=== PATIENT | male | born 1975 | race African-American/Black ===

== ENCOUNTER 2025-06-21 20:55 | Inpatient (IN) | payer MEDICAID, OTHER ==
[~2025-06-21] VITALS: Ht 180.3 cm; Wt 100.0 kg
--- NOTE | 2025-06-21 22:29 | ED.PDOC ---
History of Present Illness(SKN HPI Comments 49-year-old noncompliant type 2 diabetic male presents to the ED chief complaint right foot ulcer. Patient states blister started a approximally one month ago. States started off has a callus follow up with his PCP at and january and had it scraped. Patient also states had a callus on his left foot that was scraped and also was admitted for several days for IV antibiotics. Patient reports he is type 2 diabetic was starting on metformin however has been taking his medication as prescribed. He does note some pain 6/10 on pain scale pressure type pain worse with ambulating he does deny fevers chills nausea vomiting chest pain, difficulty breathing or shortness of breath. Chief Complaint: Lower Extremity Time Seen by MD: 21:02 History of Present Illness: Nurses Notes, Medications, Allergies Allergies: Coded Allergies: No Known Drug Allergy (Verified Allergy, Unknown, 06/21/25) Information Source: Patient Mode of Arrival: Ambulatory Past Medical History PAST MEDICAL HISTORY: DM Surgical History: Denies all surgeries Family History Family History: Unknown Social History Smoker: Other (vape) Alcohol: Heavy Drugs: Denies Drug Use All Other Systems: Reviewed and Negative (see hpi) Physical Exam General Appearance: No Apparent Distress, Normal HEENT: Pharynx Normal Neck: Full Range of Motion, Non-Tender Respiratory: Lungs Clear, No Respiratory Distress, Normal Breath Sounds Cardiovascular: No Murmur, Normal Peripheral Pulses, Regular Rate/Rhythm Breast Exam: Deferred Gastrointestinal: Non Tender, Soft Genitalia: Deferred Pelvic: Deferred Rectal: Deferred Extremities: No calf tenderness, Normal capillary refill, Normal range of motion, No pedal edema Musculoskeletal : Apperance: Normal Neurologic: Alert, No Motor Deficits, Normal Affect, Normal Mood, No Sensory Deficits Cerebellar Function: Normal Reflexes: NOT DONE Skin: Dry, Normal Color, Warm, Wounds (Approximate half dollar size ulcerated wound right distal plantar aspect no noted drainage noted surrounding erythema plus one pitting edema of the foot up into ankle with noted erythema. Strength sensory motion intact positive pedal pulse) Lymphatic: No Adenopathy Was a procedure done? Was a procedure done?: No Differential Diagnosis (INTG) Differential Diagnosis: Cellulitis, Puncture Wound Differential Diagnosis: Abscess, Gangrene X-Ray, Labs, Meds, VS Vital Signs Date Time Temp Pulse Resp B/P (MAP) Pulse Ox O2 Delivery O2 Flow Rate FiO2 10/2/25 21:50 95 18 96 Room Air 06/21/25 21:50 97.7 95 18 133/75 (94) 96 97.7 06/21/25 20:58 97.7 95 18 133/75 96 97.7 Lab Test 06/21/25 22:17 06/21/25 22:01 Range/Units White Blood Count 4.5 4.4-10.8 10^3/uL Red Blood Count 4.32 L 4.5-5.90 10^6/uL Hemoglobin 13.3 L 13.5-17.5 g/dL Hematocrit 38.7 L 41.0-53.0 % Mean Corpuscular Volume 89.7 80.0-100.0 fL Mean Corpuscular Hemoglobin 30.9 28.0-32.0 pg Mean Corpuscular Hemoglobin Concent 34.4 32.0-36.0 g/dL Red Cell Distribution Width 12.2 11.8-14.3 % Platelet Count 275 140-450 10^3/uL Mean Platelet Volume 8.1 6.9-10.8 fL Neutrophils (%) (Auto) 57.8 37.0-80.0 % Lymphocytes (%) (Auto) 33.2 10.0-50.0 % Monocytes (%) (Auto) 6.7 0.0-12.0 % Eosinophils (%) (Auto) 1.6 0.0-7.0 % Basophils (%) (Auto) 0.7 0.0-2.0 % Neutrophils # (Auto) 2.6 1.6-8.6 10 ^3/uL Lymphocytes # (Auto) 1.5 0.4-5.4 10 ^3/uL Monocytes # (Auto) 0.3 0-1.3 10 ^3/uL Eosinophils # (Auto) 0.1 0-0.8 10 ^3/uL Basophils # (Auto) 0 0-0.2 10 ^3/uL Nucleated Red Blood Cells 0.1 % Prothrombin Time Pending Prothrombin Time INR Pending Activated Partial Thromboplast Time Pending Sodium Level 139 136-145 mmol/L Potassium Level 3.9 3.5-5.1 mmol/L Chloride Level 101 98-107 mmol/L Carbon Dioxide Level 29 20-31 mmol/L Anion Gap 9 5-15 Blood Urea Nitrogen 12 9-23 mg/dL Creatinine 1.02 0.700-1.30 mg/dL Glomerular Filtration Rate Calc 91 >90 mL/min BUN/Creatinine Ratio 11.8 10.0-20.0 Serum Glucose 302 H 74-106 mg/dL Hemoglobin A1c Pending Lactic Acid Level 0.9 0.4-2.0 mmol/L Calcium Level 9.1 8.7-10.4 mg/dL Phosphorus Level 3.4 2.4-5.1 mg/dL Magnesium Level 1.6 1.6-2.6 mg/dL Total Bilirubin 0.6 0.2-1.0 mg/dL Aspartate Amino Transferase (AST) 11 L 13-40 U/L Alanine Aminotransferase (ALT) < 9 7-40 U/L Alkaline Phosphatase 77 46-116 U/L C-Reactive Protein High Sensitivity 0.70 <1.0 mg/dL Total Protein 7.2 5.7-8.2 g/dL Albumin 4.3 3.2-4.8 g/dL Triglycerides Level 79 < 150 mg/dL Cholesterol Level 173 < 200 mg/dL LDL Cholesterol 95 < 100 mg/dL HDL Cholesterol 63 H 40-59 mg/dL Lipase Pending Vitamin B12 Level 518 211-911 pg/mL Vitamin D 25-Hydroxy Pending Thyroid Stimulating Hormone (TSH) Pending POC Glucose 283 H 70-106 mg/dl Current Medications Medications (Trade) Dose Ordered Sig/Eric Route Start Time Stop Time Status Last Admin Vancomycin HCl 250 ml @ 250 mls/hr ONCE ONCE IV 06/21/25 22:15 06/21/25 23:14 DC 06/21/25 23:08 Acetaminophen/ Hydrocodone Bitart ([place] 5/325MG Tab) 1 tab ONCE ONCE PO 06/21/25 22:15 06/21/25 22:16 DC 06/21/25 23:06 Sodium Chloride 1,000 ml @ 1,000 mls/hr Q1H ONCE IV 06/21/25 22:15 06/21/25 23:14 DC 06/21/25 23:08 Insulin Human Regular (InsuLIN R) 7 units ONCE ONCE IV 06/21/25 22:15 06/21/25 22:16 DC 06/21/25 23:07 X-Ray, Labs, Meds, VS Comment IMAGING: CT RIGHT FOOT No acute fracture or dislocation is seen. There are degenerative changes about the foot. There is diffuse subcutaneous swelling and stranding /fluid. No soft tissue gas is seen. No osseous erosion is seen. IMPRESSION: 1. Diffuse subcutaneous swelling and stranding/fluid may reflect infectious/in flammatory process in the appropriate clinical setting. If there is clinical concern for osteomyelitis, MRI would be more sensitive in further assessment. LAB WORK: CBC within normal limits no white count CMP blood glucose 302 Lactic acid 0.9 neg Pending blood cultures MEDICATIONS: Insulin 7 units IV push Normal saline 1000 mL bolus Vancomycin 1 g IV piggyback [place] 5 mg p.o. PLAN: Admission placed for IV antibiotics infected diabetic ulcerand uncontrolled diabetes. CT shows no gas pattern consider MRI in the morning to rule out osteomyelitis. Patient is started on IV vanco and IV insulin and fluids will place patient for admit for hospitalist. Time of 1ST Reevaluation: 21:02 Reevaluation 1ST: Unchanged Time of 2ND Reevaluation: 23:05 Reevaluation 2ND: Unchanged Patient Education/Counseling: Diagnosis, Treatment, Prognosis, Need For Follow Up Family Education/Counseling: No Family Present SEPSIS Sepsis Screen Date sepsis recognized/suspect: Jun 21, 2025 Time Sepsis recognized/suspect: 2155 Recent Procedure: No On Antibiotic Therapy: No Respiratory Rate >20: No Heart Rate >90: Yes Temp<36 C (96.8 F) or >38.3 C: No SBP <90 or MAP <65 mmHG: No New Acute Mental Status Change: No Is the patient on CPAP, BIPAP,: No Physician Orders Ct R Foot Wo Contrast (06/21/25 22:03) Blood Culture (06/21/25 22:03) Heplock Iv (06/21/25 ) Vital Signs Date Time Temp Pulse Resp B/P (MAP) Pulse Ox O2 Delivery O2 Flow Rate FiO2 06/21/25 21:50 95 18 96 Room Air 06/21/25 21:50 97.7 95 18 133/75 (94) 96 97.7 06/21/25 20:58 97.7 95 18 133/75 96 97.7 Laboratory Tests Test 06/21/25 22:17 Lactic Acid Level 0.9 mmol/L (0.4-2.0) White Blood Count 4.5 10^3/uL (4.4-10.8) Medications Medications Dose Ordered Sig/Eric Route Start Time Stop Time Status Last Admin Dose Admin Acetaminophen/ Hydrocodone Bitart 1 tab ONCE ONCE PO 06/21/25 22:15 06/21/25 22:16 DC 06/21/25 23:06 Insulin Human Regular 7 units ONCE ONCE IV 06/21/25 22:15 06/21/25 22:16 DC 06/21/25 23:07 Sodium Chloride 1,000 ml @ 1,000 mls/hr Q1H ONCE IV 06/21/25 22:15 06/21/25 23:14 DC 06/21/25 23:08 Vancomycin HCl 250 ml @ 250 mls/hr ONCE ONCE IV 06/21/25 22:15 06/21/25 23:14 DC 06/21/25 23:08 Departure 1 Departure Time of Disposition: 22:25 Impression: Primary Impression: Diabetic foot ulcer Qualified Codes: E11.621 - Type 2 diabetes mellitus with foot ulcer; L97.412 - Non-pressure chronic ulcer of right heel and midfoot with fat layer exposed Additional Impression: Uncontrolled type 2 diabetes mellitus Qualified Codes: E11.65 - Type 2 diabetes mellitus with hyperglycemia Disposition: ADMITTED INPATIENT Condition: Stable Discharged With: Self Critical Care Note Critical Care Time?: No Stability Stability form required: TOMASZ Simmons Jun 21, 2025 22:29
[2025-06-21 22:37] LABS: Hematocrit 38.7 % (41.0-53.0); Hemoglobin 13.3 g/dL (13.5-17.5); Mean Corpuscular Hemoglobin 30.9 pg (28.0-32.0); Mean Corpuscular Volume 89.7 fL (80.0-100.0); Nucleated Red Blood Cells % 0.1 %
[2025-06-21 22:50] LABS: Albumin 4.3 g/dL (3.2-4.8); Alkaline Phosphatase 77 U/L (46-116); Anion Gap 9 (5-15); BUN/Creatinine Ratio 11.8 (10.0-20.0); Bilirubin, Total 0.6 mg/dL (0.2-1.0); Blood Urea Nitrogen 12 mg/dL (9-23); Calcium 9.1 mg/dL (8.7-10.4); Carbon Dioxide 29 mmol/L (20-31); Chloride 101 mmol/L (98-107); Potassium 3.9 mmol/L (3.5-5.1); Sodium 139 mmol/L (136-145); Total Protein 7.2 g/dL (5.7-8.2)
[2025-06-21 22:51] LABS: Alanine Aminotransferase < 9 U/L (7-40); Glucose 302 mg/dL (74-106)
[2025-06-21] MEDS: HYDROcodone-ACET 5/325MG TAB PO ONE (23:06)
[2025-06-21] MEDS: InsuLIN REG 1unit/0.01ml Soln (100units/ml) IV ONE (23:07)
[2025-06-21] MEDS: SODIUM CHLORIDE 0.9% 1,000 ML IV ONE (23:08)
[2025-06-21] MEDS: VANCOMYCIN 1GM/250ML KIT 250 ML IV ONE (23:08)
--- NOTE | 2025-06-21 23:19 | DVH ---
EXAM: CT CT R FOOT WO CONTRAST HISTORY: swelling, infection pain COMPARISON: None TECHNIQUE: Noncontrast axial CT images of the right ankle were performed. Sagittal and coronal reform atted images were obtained. This CT exam was performed using one or more of the following dose reduct ion techniques: Automated exposure control, adjustment of the mA and/or kV according to patient size, or use of iterative reconstruction technique. Radiation Dose Information: CT Dose: CTDI volume is 7. 75 mGy. Dose-length product is 260.96 mGy*cm FINDINGS: No acute fracture or dislocation is seen. There are degenerative changes about the foot. There is dif fuse subcutaneous swelling and stranding /fluid. No soft tissue gas is seen. No osseous erosion is se en. IMPRESSION: 1. Diffuse subcutaneous swelling and stranding/fluid may reflect infectious/inflammatory process in t he appropriate clinical setting. If there is clinical concern for osteomyelitis, MRI would be more s ensitive in further assessment.
--- NOTE | 2025-06-21 23:41 | DVHHPRES ---
History of Present Illness Resident Creating Document: BETHANY ENGLE RESIDENT History of Present Illness This is a 49-year-old male with past medical history of diabetes mellitus type 2, presented to the ER with worsening of right foot swelling and foot ulcer. He noticed ulcer on the right foot plantar surface for the 1st time in January 2025, the ulcer has progressively worsened since last 1 month, which urged his visit to the ER. He denies fever, chills. Previous hospitalization: In December 2024 for ulcer on great toe of left foot PMHx: Type 2 diabetes mellitus PSHx: No significant surgical history Family history: No significant family history Social history: Uses nicotine vape, alcohol occasionally. Reports marijuana (last use January 2025), denies other recreational drug use. Home medication: Metformin- noncompliant Allergic history: No known allergies Patient was examined at bedside today. Patient has tachycardia. Patient is admitted for further evaluation and management. Review of Systems Review of Systems Constitutional: Denies weight loss, fever and chills. HEENT: Denies changes in vision and hearing. Respiratory: Denies shortness of breath and cough Cardiovascular: Denies chest discomfort or palpitations GI: Denies abdominal pain, nausea, vomiting and diarrhea. : Denies dysuria and urinary frequency. Musculoskeletal: Right foot ulcer Skin: Denies rash and pruritus. Neurological: Denies dizziness, headache, vision or hearing problems Allergies: Coded Allergies: No Known Drug Allergy (Verified Allergy, Unknown, 06/21/25) Exam Vital Signs Vital Signs Date Time Temp Pulse Resp B/P (MAP) Pulse Ox O2 Delivery O2 Flow Rate FiO2 06/21/25 21:50 95 18 96 Room Air 06/21/25 21:50 97.7 133/75 (94) 97.7 Exam General: Patient alert and oriented in person, place and time. Patient followin g commands. HEENT: Normocephalic, atraumatic, moist mucous membranes Respiratory/pulmonary: Clear lungs bilaterally, vesicular murmurs present in almost all lung espinoza, no associated crackles or wheezes. Cardiovascular: Normal heart sounds S1 and S2 with no associated murmurs Abdomen: Abdomen nondistended, there is no pain to palpation in any of the abdominal quadrants, no palpable masses. Extremities: Ulcer on right foot measuring 3 cm X 1 cm, necrotic base with peripheral erythema, no discharge seen Peripheral Pulses: 3+ Radial (R). 3+ Radial (L). 3+ Dorsalis pedis (R). 3+ Dorsalis pedis(L) Skin: No rashes or pruritus, there is no sacral edema present at this time. Neurological: Intact cranial nerves with no focal neurologic deficits Labs/Xrays Labs Test 06/21/25 22:17 06/21/25 22:01 Range/Units White Blood Count 4.5 4.4-10.8 10^3/uL Red Blood Count 4.32 L 4.5-5.90 10^6/uL Hemoglobin 13.3 L 13.5-17.5 g/dL Hematocrit 38.7 L 41.0-53.0 % Mean Corpuscular Volume 89.7 80.0-100.0 fL Mean Corpuscular Hemoglobin 30.9 28.0-32.0 pg Mean Corpuscular Hemoglobin Concent 34.4 32.0-36.0 g/dL Red Cell Distribution Width 12.2 11.8-14.3 % Platelet Count 275 140-450 10^3/uL Mean Platelet Volume 8.1 6.9-10.8 fL Neutrophils (%) (Auto) 57.8 37.0-80.0 % Lymphocytes (%) (Auto) 33.2 10.0-50.0 % Monocytes (%) (Auto) 6.7 0.0-12.0 % Eosinophils (%) (Auto) 1.6 0.0-7.0 % Basophils (%) (Auto) 0.7 0.0-2.0 % Neutrophils # (Auto) 2.6 1.6-8.6 10 ^3/uL Lymphocytes # (Auto) 1.5 0.4-5.4 10 ^3/uL Monocytes # (Auto) 0.3 0-1.3 10 ^3/uL Eosinophils # (Auto) 0.1 0-0.8 10 ^3/uL Basophils # (Auto) 0 0-0.2 10 ^3/uL Nucleated Red Blood Cells 0.1 % Sodium Level 139 136-145 mmol/L Potassium Level 3.9 3.5-5.1 mmol/L Chloride Level 101 98-107 mmol/L Carbon Dioxide Level 29 20-31 mmol/L Anion Gap 9 5-15 Blood Urea Nitrogen 12 9-23 mg/dL Creatinine 1.02 0.700-1.30 mg/dL Glomerular Filtration Rate Calc 91 >90 mL/min BUN/Creatinine Ratio 11.8 10.0-20.0 Serum Glucose 302 H 74-106 mg/dL Lactic Acid Level 0.9 0.4-2.0 mmol/L Calcium Level 9.1 8.7-10.4 mg/dL Total Bilirubin 0.6 0.2-1.0 mg/dL Aspartate Amino Transferase (AST) 11 L 13-40 U/L Alanine Aminotransferase (ALT) < 9 7-40 U/L Alkaline Phosphatase 77 46-116 U/L Total Protein 7.2 5.7-8.2 g/dL Albumin 4.3 3.2-4.8 g/dL POC Glucose 283 H 70-106 mg/dl SEPSIS Sepsis Screen Date sepsis recognized/suspect: Jun 21, 2025 Time Sepsis recognized/suspect: 2155 Recent Procedure: No On Antibiotic Therapy: No Respiratory Rate >20: No Heart Rate >90: Yes Temp<36 C (96.8 F) or >38.3 C: No SBP <90 or MAP <65 mmHG: No New Acute Mental Status Change: No Is the patient on CPAP, BIPAP,: No Physician Orders Ct R Foot Wo Contrast (06/21/25 22:03) Blood Culture (06/21/25 22:03) Heplock Iv (06/21/25 ) Vital Signs Date Time Temp Pulse Resp B/P (MAP) Pulse Ox O2 Delivery O2 Flow Rate FiO2 06/21/25 21:50 95 18 96 Room Air 06/21/25 21:50 97.7 95 18 133/75 (94) 96 97.7 06/21/25 20:58 97.7 95 18 133/75 96 97.7 Laboratory Tests Test 06/21/25 22:17 Lactic Acid Level 0.9 mmol/L (0.4-2.0) White Blood Count 4.5 10^3/uL (4.4-10.8) Medications Medications Dose Ordered Sig/Eric Route Start Time Stop Time Status Last Admin Dose Admin Acetaminophen/ Hydrocodone Bitart 1 tab ONCE ONCE PO 06/21/25 22:15 06/21/25 22:16 DC 06/21/25 23:06 1 TAB Insulin Human Regular 7 units ONCE ONCE IV 06/21/25 22:15 06/21/25 22:16 DC 06/21/25 23:07 7 UNITS Sodium Chloride 1,000 ml @ 1,000 mls/hr Q1H ONCE IV 06/21/25 22:15 06/21/25 23:14 DC 06/21/25 23:08 1,000 MLS/HR Vancomycin HCl 250 ml @ 250 mls/hr ONCE ONCE IV 06/21/25 22:15 06/21/25 23:14 DC 06/21/25 23:08 250 MLS/HR Assessment/Plan Assessment/Plan Diabetic foot ulcer Rule out PAD HIV, MRSA , wound culture ordered Podiatry consulted Wound care consulted IV vancomycin and Zosyn Ordered bilateral lower arterial US Type 2 diabetes mellitus, uncontrolled Noncompliant on medication Sliding scale insulin A1c 10.8 Monitor blood glucose Diabetes education, diet Patient refuses to use insulin (in hospital long acting and none when discharged), patient understands the risks of uncontrolled blood pressure and is open to trying metformin only to control his blood glucose Vitamin-D deficiency Supplemented DIET: NPO DVT PROPHYLAXIS: Lovenox GI PROPHYLAXIS: Protonix CODE STATUS: Goals of care discussed with patient at bedside for more than 37 minutes. Full code DISPOSITION: Med/surge Patient's status and plan discussed with the patient. Case discussed with Dr. Corral Plan discussed with: Patient, Other (Nurses) Date of Service: Jun 21, 2025 Billing Provider: DOYLE MONTOYA MD Common Visit Codes: [id number] INP/OBS CARE (HIGH) Secondary Visit Codes: [id number] CARE PLAN 30 MINUTES BETHANY ENGLE RESIDENT Jun 21, 2025 23:41 AMANDO CAMPBELL RESIDENT Jun 22, 2025 05:51
[2025-06-21] MEDS ORDERED: ONDANSETRON HCL 4 MG/2 ML VIAL IV PRN (23:45)
[2025-06-21] MEDS ORDERED: MORPHINE SULFATE INJ 2 MG/ml SYRG IV PRN (23:45)
[2025-06-21] MEDS: ENOXAPARIN SOD 40 MG/0.4 ML SYRINGE SC SCH (23:45)
[2025-06-21] MEDS ORDERED: DEXTROSE (50%) 50ML SYRG IV PRN (23:45)
[2025-06-21] MEDS ORDERED: ACETAMINOPHEN 325 MG TAB PO PRN (23:45)
[2025-06-21 23:59] LABS: Magnesium 1.6 mg/dL (1.6-2.6); Triglycerides 79.0 mg/dL (< 150)
[2025-06-22 00:01] LABS: Cholesterol 173.0 mg/dL (< 200); HDL Cholesterol 63.0 mg/dL (40-59)
[2025-06-22 00:06] LABS: INR 1.02 (0.9-1.15); Partial Thromboplastin Time 24.6 SEC (24.5-34.5); Prothrombin Time 10.8 sec (9.3-11.8)
[2025-06-22 00:11] LABS: Lipase 39.0 U/L (12-53)
[2025-06-22] MEDS ORDERED: VANCOMYCIN PER PHARMACY 0 MG IV SCH (00:15)
[2025-06-22] MEDS: PIPERACILLIN-TAZOB 3.375GM 100 ML IV SCH (00:30)
[2025-06-22] MEDS ORDERED: VANCOMYCIN 1GM/250ML KIT 250 ML IV ONE (01:00)
[2025-06-22] MEDS ORDERED: ERGOCALCIFEROL 50,000 UNIT(1.25MG) CAP PO SCH (01:15)
[2025-06-22 03:12] VITALS: TEMP 97.9
[2025-06-22 03:52] LABS: Urine Protein, UAD Negative (Negative)
[2025-06-22 04:37] LABS: Amphetamine Screen, Urine Neg (NEGATIVE); Barbiturate Scree,Urine Neg (NEGATIVE); Benzodiazephine Screen, Urine Neg (NEGATIVE); Cannabinoid Screen, Urine Neg (NEGATIVE); Cocaine Screen, Urine Neg (NEGATIVE); Opiate Scree,Urine Neg (NEGATIVE); Phencyclidine Screen, Urine Neg (NEGATIVE)
[2025-06-22] MEDS: SODIUM CHLORIDE 0.9% 1,000 ML IV ONE (04:45)
[2025-06-22] MEDS: VANCOMYCIN 1GM/250ML KIT 250 ML IV ONE (04:45)
[2025-06-22 04:54] LABS: Hematocrit 38.2 % (41.0-53.0); Hemoglobin 13.1 g/dL (13.5-17.5); Mean Corpuscular Hemoglobin 30.9 pg (28.0-32.0); Mean Corpuscular Volume 89.9 fL (80.0-100.0); Nucleated Red Blood Cells % 0.2 %
[2025-06-22 05:22] LABS: Albumin 4.0 g/dL (3.2-4.8); Alkaline Phosphatase 74 U/L (46-116); Anion Gap 9 (5-15); BUN/Creatinine Ratio 12.8 (10.0-20.0); Blood Urea Nitrogen 12 mg/dL (9-23); Calcium 8.7 mg/dL (8.7-10.4); Carbon Dioxide 31 mmol/L (20-31); Chloride 102 mmol/L (98-107); Potassium 3.7 mmol/L (3.5-5.1); Sodium 142 mmol/L (136-145); Total Protein 6.7 g/dL (5.7-8.2)
[2025-06-22 05:23] LABS: Alanine Aminotransferase < 9 U/L (7-40); Bilirubin, Total 0.6 mg/dL (0.2-1.0); Glucose 192 mg/dL (74-106)
--- NOTE | 2025-06-22 05:44 | DVH ---
CHEST RADIOGRAPH Indication: SOB Technique: Single frontal view of the chest was obtained COMPARISON: None FINDINGS: Lines and Tubes: None Lungs: Increased interstitial prominence. Elevation of the left hemidiaphragm. Pleura: No effusion.No pneumothorax. Cardiomediastinal contours: Unremarkable Bones: Unremarkable IMPRESSION: Possible mild pulmonary vascular congestion.
[2025-06-22] MEDS: ACCU-CHEK COMFORT CURVE STRIP VI SCH (06:06)
[2025-06-22] MEDS: InsuLIN REG 1unit/0.01ml Soln (100units/ml) SC SCH (06:08)
--- NOTE | 2025-06-22 08:15 | DVH ---
BILATERAL Lower Extremity Arterial Duplex Date: 06/22/2025 07:10 AM Clinical History: Rule out PAD Comparison: None Technique: Duplex Doppler evaluation including color Doppler and spectral/pulsed waveform analysis of the lower extremity arteries was performed. Finding: RIGHT: Peak systolic velocities are as follows: [employer]ER 108 cm/s Deep femoral 55 cm/s SFA proximal 90 cm/s SFA mid-portion 113 cm/s SFA distal 104 cm/s Popliteal 76 cm/s Posterior tibial 81 cm/s Anterior tibial 107 cm/s Dorsalis pedis 82 cm/s The waveforms are triphasic waveforms with monophasic waveforms in the right dorsalis pedal artery an d right anterior tibial artery.. LEFT: Peak systolic velocities are as follows: [employer] TE[employer]ER 102 cm/s Deep femoral 79 cm/s SFA proximal 77 cm/s SFA mid-portion 99 cm/s SFA distal 66 cm/s Popliteal 66 cm/s Posterior tibial 69 cm/s Anterior tibial 72 cm/s Dorsalis pedis 100 cm/s The waveforms are triphasic waveforms.. REFERENCE VALUES, [facility]) vascular Imaging Lab Criteria: Peak systolic velocity ranges (in cm/sec) are as follows: <150 cm/s - <20 % stenosis 150-200 cm/s - 20-49% stenosis 200-300 cm/s - 50-75% stenosis >300 cm/s -> 75% stenosis IMPRESSION: Monophasic waveform right dorsalis pedal artery and anterior tibial artery. 3 x 1 x 2 cm right inguinal lymph node
[2025-06-22] MEDS ORDERED: THIAMINE 100mg/ml INJ (200mg/2ml VIAL) IV ONE (09:30)
[2025-06-22] MEDS ORDERED: DEXTROSE (50%) 50ML SYRG IV PRN (09:45)
[2025-06-22] MEDS ORDERED: INSULIN LANTUS (GLARGINE) 1 /0.01ml (100units/ml) SC ONE (09:45)
[2025-06-22 10:00] VITALS: BP 134/83; PULSE 63; RESP 16; O2SAT 98
[2025-06-22] MEDS ORDERED: MULTIPLE VITAMINS W/ MINERALS TAB PO SCH (10:00)
[2025-06-22] MEDS ORDERED: PANTOPRAZOLE 40 MG/10 ML VIAL INJ IV SCH (10:00)
[2025-06-22] MEDS ORDERED: INSULIN LISPRO (HUMAN) 100 UNITS/ML ML SC SCH (11:30)
[2025-06-22] MEDS ORDERED: ACCU-CHEK COMFORT CURVE STRIP VI SCH (12:00)
[2025-06-22] MEDS ORDERED: InsuLIN REG 1unit/0.01ml Soln (100units/ml) SC SCH (12:00)
--- NOTE | 2025-06-22 12:38 | DVHDSRES ---
Discharge Summary Date of Admission Resident Creating Document: ALMA SOSA RESIDENT Jun 21, 2025 at 23:37 Date of Discharge: Jun 22, 2025 Admitting Diagnosis Right diabetic foot ulcer Labs/Diagnostic Data: Laboratory Results Test 06/22/25 06:01 06/22/25 04:25 06/22/25 03:19 06/21/25 22:17 POC Glucose 283 mg/dl (70-106) White Blood Count 4.7 10^3/uL (4.4-10.8) Red Blood Count 4.25 10^6/uL (4.5-5.90) Hemoglobin 13.1 g/dL (13.5-17.5) Hematocrit 38.2 % (41.0-53.0) Mean Corpuscular Volume 89.9 fL (80.0-100.0) Mean Corpuscular Hemoglobin 30.9 pg (28.0-32.0) Mean Corpuscular Hemoglobin Concent 34.3 g/dL (32.0-36.0) Red Cell Distribution Width 12.2 % (11.8-14.3) Platelet Count 266 10^3/uL (140-450) Mean Platelet Volume 8.1 fL (6.9-10.8) Neutrophils (%) (Auto) 56.9 % (37.0-80.0) Lymphocytes (%) (Auto) 32.6 % (10.0-50.0) Monocytes (%) (Auto) 7.9 % (0.0-12.0) Eosinophils (%) (Auto) 1.8 % (0.0-7.0) Basophils (%) (Auto) 0.8 % (0.0-2.0) Neutrophils # (Auto) 2.7 10 ^3/uL (1.6-8.6) Lymphocytes # (Auto) 1.5 10 ^3/uL (0.4-5.4) Monocytes # (Auto) 0.4 10 ^3/uL (0-1.3) Eosinophils # (Auto) 0.1 10 ^3/uL (0-0.8) Basophils # (Auto) 0 10 ^3/uL (0-0.2) Nucleated Red Blood Cells 0.2 % Sodium Level 142 mmol/L (136-145) Potassium Level 3.7 mmol/L (3.5-5.1) Chloride Level 102 mmol/L (98-107) Carbon Dioxide Level 31 mmol/L (20-31) Anion Gap 9 (5-15) Blood Urea Nitrogen 12 mg/dL (9-23) Creatinine 0.94 mg/dL (0.700-1.30) Glomerular Filtration Rate Calc 101 mL/min (>90) BUN/Creatinine Ratio 12.8 (10.0-20.0) Serum Glucose 192 mg/dL (74-106) Calcium Level 8.7 mg/dL (8.7-10.4) Total Bilirubin 0.6 mg/dL (0.2-1.0) Aspartate Amino Transferase (AST) 12 U/L (13-40) Alanine Aminotransferase (ALT) < 9 U/L (7-40) Alkaline Phosphatase 74 U/L (46-116) Total Protein 6.7 g/dL (5.7-8.2) Albumin 4.0 g/dL (3.2-4.8) Plasma/Serum Blood Alcohol < 3.0 mg/dL (<10) Treponema pallidum Antibody Non-reactive (Negative) HIV (1&2) Antibody Negative (Negative) Urine Color Light-yellow (Yellow) Urine Clarity Clear (Clear) Urine pH 5.5 (5.0-9.0) Urine Specific [place] 1.016 (1.001-1.035) Urine Protein Negative (Negative) Urine Ketones Negative (Negative) Urine Blood Negative /uL (Negative) Urine Nitrite Negative (Negative) Urine Bilirubin Negative (Negative) Urine Urobilinogen Normal mg/dL (Negative) Urine Leukocyte Esterase Negative /uL (Negative) Urine RBC 1 /hpf (0 - 3) Urine Microscopic WBC < 1 /HPF (0-3) Urine Squamous Epithelial Cells Few /hpf (<5) Urine Bacteria None seen /hpf (None Seen) Urine Mucus Few (None Seen) Urine Glucose 1+ mg/dL (Normal) Urine Opiates Screen Neg (NEGATIVE) Urine Fentanyl Screen Neg (NEGATIVE) Urine Barbiturates Screen Neg (NEGATIVE) Urine Phencyclidine Screen Neg (NEGATIVE) Urine Amphetamines Screen Neg (NEGATIVE) Urine Benzodiazepines Screen Neg (NEGATIVE) Urine Cocaine Screen Neg (NEGATIVE) Urine Cannabinoids Screen Neg (NEGATIVE) Prothrombin Time 10.8 sec (9.3-11.8) Prothrombin Time INR 1.02 (0.9-1.15) Activated Partial Thromboplast Time 24.6 SEC (24.5-34.5) Hemoglobin A1c 10.8 % A1C (<5.7) Lactic Acid Level 0.9 mmol/L (0.4-2.0) Phosphorus Level 3.4 mg/dL (2.4-5.1) Magnesium Level 1.6 mg/dL (1.6-2.6) C-Reactive Protein High Sensitivity 0.70 mg/dL (<1.0) Triglycerides Level 79 mg/dL (< 150) Cholesterol Level 173 mg/dL (< 200) LDL Cholesterol 95 mg/dL (< 100) HDL Cholesterol 63 mg/dL (40-59) Lipase 39 U/L (12-53) Vitamin B12 Level 518 pg/mL (211-911) Vitamin D 25-Hydroxy 23.9 ng/mL (30.0-100) Thyroid Stimulating Hormone (TSH) 3.80 uIU/mL (0.55-4.78) Other Laboratory Tests 06/22/25 04:25 Brief Hx & Hospital Course: 49-year-old male with past medical history of diabetes mellitus type 2, presented to the ER with worsening of right foot swelling and foot ulcer. He noticed ulcer on the right foot plantar surface for the 1st time in January 2025, the ulcer has progressively worsened since last 1 month, and in the last 2 days he noticed clear discharge well as some bleeding as well as swelling which urged his visit to the ER. patient says that the discharge was foul-smelling. He denies fever, chills. Previous hospitalization: In December 2024 for ulcer on great toe of left foot PMHx: Type 2 diabetes mellitus PSHx: No significant surgical history Family history: No significant family history Social history: Uses nicotine vape. Reports marijuana (last use January 2025), denies other recreational drug use. He has been drinking alcohol since the age of 17 and drinks 4-5 hard drinks every day- usually vodka and keyana. last alcohol intake was 5 days ago. Home medication: Metformin- noncompliant Allergic history: No known allergies Brief history of hospitalization: 49-year-old male with past medical history of type 2 diabetes mellitus never adherent to his medication came with a right plantar foot ulcer that had been leaking clear fluid, some blood and swollen in the past [address] of the right foot without contrast showed diffuse subcutaneous swelling and stranding / fluid may reflect infectious / inflammatory process in the appropriate clinical setting. Bilateral lower arterial ultrasound was also done to assess for PD and monophasic waveform right dorsalis pedis artery and anterior tibial artery; 3 x1 x 2 cm right inguinal lymph node was seen. Patient was given IV vancomycin and Zosyn and wound consult was done. Podiatry consult was also placed. We checked his A1c which was 10.8 continue to monitor his blood glucose. Insulin Lantus 6 HS, lispro 2 units t.i.d. and sliding scale insulin was placed but the patient refused to take insulin believing he would become dependent on it. Patient was educated regarding the need to decrease his blood sugars and that it would contribute towards his ulcer but patient still declined medication. Patient reported that he has been drinking alcohol since age of 17 4-6 drinks per day and last drink was 5 days ago. Patient was counseled regarding cessation. He had no withdrawal symptoms. Vitamin-D levels in the labs showed low reading and it was supplemented. While we were waiting for Podiatry to see the patient and continuing with his IV antibiotics, patient wanted to leave. We counseled the patient Extensively regarding the need of hospitalization, blood sugar management and patient communicated understanding but still wanted to leave and left. 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 Operations or Procedures EXAM: CT CT R FOOT WO CONTRAST HISTORY: swelling, infection pain IMPRESSION: 1. Diffuse subcutaneous swelling and stranding/fluid may reflect infectious/inflammatory process in the appropriate clinical setting. If there is clinical concern for osteomyelitis, MRI would be more sensitive in further assessment. CHEST RADIOGRAPH Indication: SOB IMPRESSION: Possible mild pulmonary vascular congestion. BILATERAL Lower Extremity Arterial Duplex Clinical History: Rule out PAD IMPRESSION: Monophasic waveform right dorsalis pedal artery and anterior tibial artery. 3 x 1 x 2 cm right inguinal lymph node Condition at Discharge: Undetermined Final Diagnosis/Problems List #Right Diabetic foot ulcer #ruled out PAD #Type 2 diabetes mellitus, uncontrolled #Noncompliant on medication #Vitamin-D deficiency #Obesity, BMI 30.7 #alcohol use disorder Discharge Disposition: AMA Discharge Statement: "Patient was advised to return to the ER or call 911 if any headaches, dizziness, shortness of breath, chest pain, abdominal pain, bleeding, fevers, or worsening of medical condition. Patient was counseled about treatment plan, medications, possible side effects, patientverbalized understanding. All questions were answered to the best of my ability. This discharge took greater then 30 minutes in planning, reviewing documentation, counseling the patient, and discussing with other team members." ASSESSMENT ASSESSMENT Assessment Date of Service: Jun 22, 2025 Billing Provider: FRANCA ALMAGUER MD Common Visit Codes: 61714-RSZ/OBS DISCH DAY >30min ALMA SOSA RESIDENT Jun 22, 2025 12:38 FRANCA ALMAGUER MD Jun 22, 2025 19:55
[2025-06-22] MEDS ORDERED: VANCOMYCIN 1GM/250ML KIT 250 ML IV SCH (18:00)
[2025-06-23 11:07] LABS: Chlamydia Trachomatis, NAA Negative (Negative); Neisseria gonorrhoeae, NAA Negative (Negative)
== END 2025-06-22 12:18 | disposition left against medical advice (07) | DRG 380 ==
LOC: ER 20:55 → OVERFLOW 23:37
PROVIDERS: ADMIT Student in an Organized Health Care Education/Training Program; ATTEND Student in an Organized Health Care Education/Training Program
DX: E11.621 Type 2 diabetes mellitus with foot ulcer (principal); L97.519 Non-pressure chronic ulcer of other part of right foot with unspecified severity; E55.9 Vitamin D deficiency, unspecified; Z53.29 Procedure and treatment not carried out because of patient's decision for other reasons; E66.9 Obesity, unspecified; F10.10 Alcohol abuse, uncomplicated; F17.200 Nicotine dependence, unspecified, uncomplicated; Z91.148 Patient's other noncompliance with medication regimen for other reason; Z68.30 Body mass index [BMI] 30.0-30.9, adult; Z79.899 Other long term (current) drug therapy; Y90.0 Blood alcohol level of less than 20 mg/100 ml
CPT/HCPCS: 36415; 71045; 73700; 80053; 80061; 80307; 80320; 81001; 82306; 82607; 82962; 83036; 83605; 83690; 83735; 84100; 84443; 85025; 85610; 85730; 86141; 86703; 86780; 87040; 87086; 93925; 96365; G0378; J1815; J2543

== ENCOUNTER 2025-07-29 20:09 | Emergency (ER) | payer MEDICAID | END 2025-07-29 20:10 | disposition left against medical advice (07) | LOC: ER 20:09 | DX: Z48.00 Encounter for change or removal of nonsurgical wound dressing (principal); Z53.21 Procedure and treatment not carried out due to patient leaving prior to being seen by health care provider ==

== ENCOUNTER 2025-07-30 08:12 | Inpatient (IN) | payer SELFPAY ==
[~2025-07-30] VITALS: Ht 180.3 cm; Wt 215.0 kg
--- NOTE | 2025-07-30 09:06 | ED.PDOC ---
Musculoskeletal HPI Comments 49-year-old male presents to the ER with a prior MHx of diabetes in the chief complaint of a diabetic wound to the volar aspect of the right foot. Patient does have erythematous and swelling to the dorsal aspects of the metatarsal. Denies any other symptoms at this time. Still able to bear weight Denies previous surgeries to the foot Denies redness or swelling around the foot Denies fever chills night sweats nausea vomiting Chief Complaint: Wound Check Time Seen by MD: 09:00 Reviewed Notes: Nurses Notes, Medications, Allergies Allergies: Coded Allergies: No Known Drug Allergy (Verified Allergy, Unknown, 06/21/25) Information Source: Patient Mode of Arrival: Ambulatory Location: Right Extremity Location: Foot Timing: Came on: Gradually Prehospital treatment: None Severity: Moderate Able to Move Extremity: No Bear Weight: Limited Pain: Moderate Hand Dominance: Right Mechanism: Spontaneous Circumstances: Spontaneous Onset of Symptoms: Spontaneous Symptoms: Swelling, Pain, Erythema DVT Risk Factors: NONE Associated signs and symptoms: Swelling, Foot pain Past Medical History PAST MEDICAL HISTORY: DM Surgical History: Denies all surgeries Family History Family History: Reviewed,noncontributory to illness, Unknown Social History Smoker: Unknown Alcohol: Unknown Drugs: Unknown Lives In: Home Constitutional: denies: chills, diaphoresis, fatigue, fever, malaise, sweats, weakness, others EENTM: denies: blurred vision, double vision, ear bleeding, ear discharge, ear drainage, ear pain, ear ringing, eye pain, eye redness, hearing loss, mouth pain, mouth swelling, nasal discharge, nose bleeding, nose congestion, nose pain, photophobia, tearing, throat pain, throat swelling, voice changes, others Respiratory: denies: cough, hemoptysis, orthopnea, SOB at rest, shortness of breath, SOB with excertion, stridor, wheezing, others Cardiovascular: denies: chest pain, dizzy spells, diaphoresis, Dyspnea on exertion, edema, irregular heart beat, left arm pain, lightheadedness, palpitations, PND, syncope, others Gastrointestinal: denies: abdomen distended, abdominal pain, blood streaked bowels, constipated, diarrhea, dysphagia, difficulty swallowing, hematemesis, melena, nausea, poor appetite, poor fluid intake, rectal bleeding, rectal pain, vomiting, others Genitourinary: denies: burning, dysuria, flank pain, frequency, hematuria, incontinence, penile discharge, penile sore, pain, testicle pain, testicle swelling, urgency, others Neurological: denies: dizziness, fainting, headache, left sided numbness, left sided weakness, numbness, paresthesia, pre-existing deficit, right sided numbness, right sided weakness, seizure, speech problems, tingling, tremors, weakness, others Musculoskeletal: denies: back pain, gout, joint pain, joint swelling, muscle pain, muscle stiffness, neck pain, others Integumetry: reports: wounds (Diabetic wound to the volar aspect of the right foot); denies: bruises, change in color, change in hair/nails, dryness, laceration, lesions, lumps, rash, others Allergic/Immunocompromised: denies: Difficulty Healing, Frequent Infections, Hives, Itching, others Hematologic/Lymphatic: denies: anemia, blood clots, easy bleeding, easy bruising, swollen glands, others Endocrine: denies: excessive hunger, excessive sweating, excessive thirst, excessive urination, flushing, intolerance to cold, intolerance to heat, unexplained weight gain, unexplained weight loss, others Psychiatric: denies: anxiety, bipolar disorder, depression, hopeless, panic disorder, schizophrenia, sleepless, suicidal, others All Other Systems: Reviewed and Negative Physical Exam Exam Comments 2x2x2 with a diameter and depth, erythematous to the dorsal aspect of the metatarsal of the right foot General Appearance: No Apparent Distress, Normal HEENT: Normal ENT Inspection, Pharynx Normal, TMs Normal Neck: Full Range of Motion, Non-Tender, Normal, Normal Inspection Respiratory: Chest Non-Tender, Lungs Clear, No Accessory Muscle Use, No Respiratory Distress, Normal Breath Sounds Cardiovascular: No Edema, No JVD, No Murmur, No Gallop, Normal Peripheral Pulses, Regular Rate/Rhythm Breast Exam: Deferred Gastrointestinal: No Organomegaly, Non Tender, No Pulsatile Mass, Normal Bowel Sounds, Soft Genitalia: Deferred Pelvic: Deferred Rectal: Deferred Extremities: No calf tenderness, Normal capillary refill, Normal inspection, Normal range of motion, Non-tender, No pedal edema Musculoskeletal : Apperance: Normal Neurologic: Alert, roller maker II-XII nml as Tested, No Motor Deficits, Normal Affect, Normal Mood, No Sensory Deficits Cerebellar Function: Normal Reflexes: Normal Skin: Dry, Normal Color, Warm Lymphatic: No Adenopathy Was a procedure done? Was a procedure done?: No Differential Diagnosis EXT Differential Diagnosis: Cellulitis, Compartment Syndrome, Fracture, Sprain, Arthritis, Bursitis X-Ray, Labs, Meds, VS Vital Signs Date Time Temp Pulse Resp B/P (MAP) Pulse Ox O2 Delivery O2 Flow Rate FiO2 07/30/25 08:13 97.8 98 16 136/78 100 97.8 Lab Test 07/30/25 11:08 07/30/25 09:12 Range/Units Lactic Acid Level 1.3 0.4-2.0 mmol/L White Blood Count 9.4 4.4-10.8 10^3/uL Red Blood Count 4.56 4.5-5.90 10^6/uL Hemoglobin 13.8 13.5-17.5 g/dL Hematocrit 40.6 L 41.0-53.0 % Mean Corpuscular Volume 88.8 80.0-100.0 fL Mean Corpuscular Hemoglobin 30.1 28.0-32.0 pg Mean Corpuscular Hemoglobin Concent 33.9 32.0-36.0 g/dL Red Cell Distribution Width 12.1 11.8-14.3 % Platelet Count 350 140-450 10^3/uL Mean Platelet Volume 8.1 6.9-10.8 fL Neutrophils (%) (Auto) 84.3 H 37.0-80.0 % Lymphocytes (%) (Auto) 8.5 L 10.0-50.0 % Monocytes (%) (Auto) 5.9 0.0-12.0 % Eosinophils (%) (Auto) 0.5 0.0-7.0 % Basophils (%) (Auto) 0.8 0.0-2.0 % Neutrophils # (Auto) 7.9 1.6-8.6 10 ^3/uL Lymphocytes # (Auto) 0.8 0.4-5.4 10 ^3/uL Monocytes # (Auto) 0.6 0-1.3 10 ^3/uL Eosinophils # (Auto) 0 0-0.8 10 ^3/uL Basophils # (Auto) 0.1 0-0.2 10 ^3/uL Nucleated Red Blood Cells 0.0 % Erythrocyte Sedimentation Rate 56 H 0-20 mm/hr Sodium Level 135 L 136-145 mmol/L Potassium Level 3.9 3.5-5.1 mmol/L Chloride Level 94 L 98-107 mmol/L Carbon Dioxide Level 31 20-31 mmol/L Anion Gap 10 5-15 Blood Urea Nitrogen 6 L 9-23 mg/dL Creatinine 1.22 0.700-1.30 mg/dL Glomerular Filtration Rate Calc 74 >90 mL/min BUN/Creatinine Ratio 4.9 L 10.0-20.0 Serum Glucose 311 H 74-106 mg/dL Hemoglobin A1c 9.1 H <5.7 % A1C Calcium Level 9.5 8.7-10.4 mg/dL C-Reactive Protein High Sensitivity 15.99 H <1.0 mg/dL Triglycerides Level 126 < 150 mg/dL Cholesterol Level 169 < 200 mg/dL LDL Cholesterol 70 < 100 mg/dL HDL Cholesterol 64 H 40-59 mg/dL Current Medications Medications (Trade) Dose Ordered Sig/Eric Route Start Time Stop Time Status Last Admin Ceftriaxone Sodium/Dextrose 50 ml @ 50 mls/hr ONCE ONCE IV 07/30/25 11:00 07/30/25 11:59 DC 07/30/25 20:33 PATIENT: RAI MENDEZCCT: [id number]: [id number] : 1975 LOC: ER ROOM / BED: / AGE / SEX: 49 / M ADM STATUS: REG ER SERVICE [id number] ORDERING PHYSICIAN: ROSA MARIA ALVARADO NP PROCEDURE(s): RFTCT - CT R FOOT WO CONTRAST REASON: R/o osteomyelitis ORDER NUMBER(s): [id number], ACCESSION NUMBER(s): [id number] CLINICAL INDICATION: R/o osteomyelitis TECHNIQUE: Noncontrast CT of the right foot was performed. Sagittal and coronal reformatted images are provided. COMPARISON: CT CT R FOOT WO CONTRAST on DOS: 06/21/25 CT Dose: CTDI volume is 24.92 mGy. Dose-length product is 698.93 mGy*cm FINDINGS: There is marked soft tissue swelling and gas in the plantar surface of the forefoot particularly deep to the 3rd, 4th and 5th digits. There are lucencies in the 5th metatarsal head and the 5th proximal phalanx. There is also lucency in the 4th proximal phalanx. These findings are concerning for osteomyelitis. No evidence of acute fracture or dislocation. Mild midfoot degenerative changes. There is soft tissue swelling of the ankle and forefoot. Heel spur noted. No obvious fluid collection although assessment is limited without intravenous contrast. IMPRESSION: 1. Soft tissue swelling at emphysema in the forefoot compatible with cellulitis with a gas-forming bacteria suspected. 2. Suspect osteomyelitis in the 5th metatarsal head, 5th proximal phalanx and 4th proximal phalanx. MRI of the foot without and with intravenous contrast is recommended to evaluate these findings and to assess for possible additional osteomyelitis. All CT scans at this medical facility are performed using dose modulation techniques as appropriate to a performed exam including the following: Automated exposure control was utilized; adjustment of the MA and/or KV according to patient size; and use of iterative reconstruction technique. ATED BY: ALICIA BAILEY MD DICTATED DATE/TIME: 07/30/251016 SIGNED BY: ALICIA BAILEY MD SIGNED DATE/TIME: 07/30/251016 CC: X-Ray, Labs, Meds, VS Comment 49-year-old male presents to the ER with a prior MHx of diabetes in the chief complaint of a wound check to the volar aspect of the right foot. Patient arrives alert and oriented, ABC's intact, afebrile, vital signs stable, saturating well in room air Peripheral IV insertion+ labs were ordered. CBC was ordered to exclude anemia, blood loss, or infection. BMP was ordered to exclude electrolyte abnormalities, renal failure, dehydration, hyperglycemia C-reactive proteins, erythrocyte sediment Diagnostic imaging ordered by me and results interpreted by radiology : CT of the right foot diabetic foot wound. Patient well appearing. VSS. Given History, Exam, and Workup I have low suspicion for Necrotizing Fasciitis, Abscess, or DVT as cause of symptoms. Presentation consistent with Ostomyelitis Interventions: Vancomycin 1g IV and Rocepin 2g IV Disposition: Admit for IV abx, tissue evaluation/possible debridement, and continued monitoring. Time of 1ST Reevaluation: 09:30 Reevaluation 1ST: Unchanged Time of 2ND Reevaluation: 10:47 Reevaluation 2ND: Unchanged Patient Education/Counseling: Diagnosis, Treatment, Prognosis Family Education/Counseling: No Family Present Sepsis Sepsis Reasesment Focused Exam Orders: Laboratory Tests 07/30/25 11:08: Lactic Acid Level 1.3 Departure 1 Departure Time of Disposition: 10:47 Impression: Primary Impression: Diabetic foot ulcer Qualified Codes: E13.621 - Other specified diabetes mellitus with foot ulcer; L97.519 - Non-pressure chronic ulcer of other part of right foot with unspecified severity Additional Impressions: Osteomyelitis Qualified Codes: M86.9 - Osteomyelitis, unspecified Cellulitis of foot Disposition: ADMITTED INPATIENT Condition: Guarded Critical Care Note Critical Care Time?: No Stability Stability form required: No Heart Score Heart Score: Heart Score Response (Comments) Value History N/A 0 EKG N/A 0 Age N/A 0 Risk Factors N/A 0 Troponin N/A 0 Total 0 I personally scribed for ROSA MARIA ALVARADO NP ([email or web address]) on 07/30/25 at 09:06. Electronically submitted by Roman Trevino ([email or web address]). ROSA MARIA ALVARADO NP Jul 30, 2025 09:06
[2025-07-30 09:30] LABS: Hematocrit 40.6 % (41.0-53.0); Hemoglobin 13.8 g/dL (13.5-17.5); Mean Corpuscular Hemoglobin 30.1 pg (28.0-32.0); Mean Corpuscular Volume 88.8 fL (80.0-100.0); Nucleated Red Blood Cells % 0.0 %
[2025-07-30 09:44] LABS: Potassium 3.9 mmol/L (3.5-5.1)
[2025-07-30 09:45] LABS: Calcium 9.5 mg/dL (8.7-10.4); Carbon Dioxide 31 mmol/L (20-31)
[2025-07-30 09:48] LABS: Sodium 135 mmol/L (136-145)
[2025-07-30 09:50] LABS: BUN/Creatinine Ratio 4.9 (10.0-20.0)
[2025-07-30 09:51] LABS: Blood Urea Nitrogen 6 mg/dL (9-23); Glucose 311 mg/dL (74-106)
[2025-07-30 10:19] LABS: Anion Gap 10 (5-15); Chloride 94 mmol/L (98-107)
--- NOTE | 2025-07-30 10:20 | DVH ---
CLINICAL INDICATION: R/o osteomyelitis TECHNIQUE: Noncontrast CT of the right foot was performed. Sagittal and coronal reformatted images are provided. COMPARISON: CT CT R FOOT WO CONTRAST on DOS: 06/21/25 CT Dose: CTDI volume is 24.92 mGy. Dose-length product is 698.93 mGy*cm FINDINGS: There is marked soft tissue swelling and gas in the plantar surface of the forefoot particularly deep to the 3rd, 4th and 5th digits. There are lucencies in the 5th metatarsal head and the 5th proximal phalanx. There is also lucency in the 4th proximal phalanx. These findings are concerning for osteomyelitis. No evidence of acute fracture or dislocation. Mild midfoot degenerative changes. There is soft tissue swelling of the ankle and forefoot. Heel spur noted. No obvious fluid collection although assessment is limited without intravenous contrast. IMPRESSION: 1. Soft tissue swelling at emphysema in the forefoot compatible with cellulitis with a gas-forming bacteria suspected. 2. Suspect osteomyelitis in the 5th metatarsal head, 5th proximal phalanx and 4th proximal phalanx. MRI of the foot without and with intravenous contrast is recommended to evaluate these findings and to assess for possible additional osteomyelitis. All CT scans at this medical facility are performed using dose modulation techniques as appropriate to a performed exam including the following: Automated exposure control was utilized; adjustment of the MA and/or KV according to patient size; and use of iterative reconstruction technique.
[2025-07-30] MEDS ORDERED: VANCOMYCIN PER PHARMACY 0 MG IV SCH ×2 (11:00→11:30)
[2025-07-30] MEDS ORDERED: ACETAMINOPHEN 325 MG TAB PO PRN (11:30)
[2025-07-30] MEDS ORDERED: HYDROcodone-ACET 5/325MG TAB PO PRN (11:30)
[2025-07-30] MEDS ORDERED: VANCOMYCIN 1GM/250ML KIT 250 ML IV SCH (11:30)
[2025-07-30] MEDS: SODIUM CHLORIDE 0.9% 1,000 ML IV ONE (11:30)
--- NOTE | 2025-07-30 11:50 | DVHHPRES ---
History of Present Illness Resident Creating Document: CODIE MADRIGAL History of Present Illness This is a 49-year-old male with past medical history of type 2 diabetes mellitus non compliant with his medications. Patient presented to the ED with chief complaint of right foot pain and edema. Patient reports that he has been dealing with a right foot nonhealing ulcer in the plantar aspect of the right foot for the past four months. 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 Today he presented to the ED with similar complaint. Upon my examination, there is an open wound in the plantar aspect of the right foot that is not painful to the touch and is actually not secreting any pus or material from the wound. There is mild edema in the dorsal aspect of the right foot that is very tender to palpation but no crepitus at this time. Initial labs were grossly unremarkable except for mild LINDA and elevated blood glucose at 311. CT of the right foot showed soft tissue swelling and cellulitis with a gas-forming bacteria and suspected osteomyelitis of the 5th metatarsal head and 4th proximal phalanx. Based on possible gas- forming bacteria we started the patient on IV meropenem, vancomycin and clindamycin to cover for necrotizing cellulitis/fascitis. We ordered blood cultures, wound cultures and Podiatry consult. Once cultures are back we can deescalate antibiotics accordingly. Patient will be admitted for further assessment and management of osteomyelitis of the right foot. Home medications: Metformin 500 mg b.i.d.. Patient states that he is not taking the medication due to diarrhea and GI concerns. Past surgical history: Denies Social history: Denies drug intake, reports occasional alcohol intake and occasional vaping. Endocrine: Diabetes Past Surgical History: None Family History: None Smoke: No (reports vaping) ALCOHOL: occassional Drugs: None Lives: with Family Review of Systems Constitutional: Yes: Chills; No: Fever, Sweats, Weakness, Malaise, Other Eyes: No: Pain, Vision change, Conjunctivae inflammation, Eyelid inflammation, Other, Redness ENT: No: Ear pain, Ear discharge, Nose pain, Nose discharge, Nose congestion, Mouth pain, Mouth swelling, Throat pain, Throat swelling, Other Respiratory: No: Cough, Dry, Shortness of breath, SOB with excertion, Wheezing, Hemoptysis, Pleuritic Pain, Sputum, Wheezing, Other Cardiovascular: No: Chest Pain, Palpitations, Orthopnea, Paroxysmal Noc. Dyspnea, Edema, Lt Headedness, Other Gastrointestinal: No: Nausea, Vomiting, Abdominal Pain, Diarrhea, Constipation, Melena, Hematochezia, Other Genitourinary: No Dysuria, No Frequency, No Incontinence, No Hematuria, No Retention, No Other Musculoskeletal: foot pain (Right foot pain in the dorsal aspect of the foot upon palpation and reports edema); No: other, neck pain, shoulder pain, arm pain, back pain, hand pain, leg pain Skin: No: Rash, Lesions, Jaundice, Bruising, Other Neurological: No: Weakness, Numbness, Incoordination, Change in speech, Confusion, Seizures, Other Allergies: Coded Allergies: No Known Drug Allergy (Verified Allergy, Unknown, 06/21/25) Medications Current Medications Medications Dose Ordered Sig/Eric Route Start Time Stop Time Status Last Admin Dose Admin Vancomycin HCl 0 ml @ 0 mls/hr PER PHARMACY IV 07/30/25 11:00 Vancomycin HCl 250 ml @ 250 mls/hr Q1H IV 07/30/25 11:30 07/30/25 13:29 Sodium Chloride 1,000 ml @ 60 mls/hr [id number] IV 07/30/25 13:00 UNV Acetaminophen 650 mg Q6HP PRN PO 07/30/25 11:30 UNV Acetaminophen/ Hydrocodone Bitart 1 tab Q4HP PRN PO 07/30/25 11:30 UNV Meropenem 50 ml @ 17 mls/hr Q8HR IV 07/30/25 14:00 UNV Vancomycin HCl 0 ml @ 0 mls/hr PER PHARMACY IV 07/30/25 11:30 UNV Clindamycin Phosphate 50 ml @ 50 mls/hr Q8HR IV 07/30/25 14:00 UNV Exam Vital Signs Vital Signs Date Time Temp Pulse Resp B/P (MAP) Pulse Ox O2 Delivery O2 Flow Rate FiO2 07/30/25 08:13 97.8 98 16 136/78 100 97.8 General Appearance: Alert, Oriented X3, Cooperative, mild distress HEENT: Atraumatic, PERRLA, EOMI, Mucous membr. moist/pink Respiratory: Clear to auscultation, Normal air movement Cardiovascular: Regular rate, Normal S1, Normal S2, No murmurs Abdominal: Normal bowel sounds, Soft, No tenderness, No hepatospenomegaly, No masses Extremities: No clubbing, No cyanosis, Normal pulses, Other (There is s ignificant tenderness to palpation in the dorsal aspect of the right foot with mild edema but no crepitus. There is an open wound ulcer on the plantar aspect of the right foot without active secretions at this time.) Skin: No rashes Neuro: Normal gait, Normal speech, Strength at 5/5 X4 ext, Normal tone, Sensation intact, Cranial nerves 3-12 NL, Reflexes 2+ Psych/Mental Status: Mental status NL, Mood NL Labs/Xrays Labs Test 07/30/25 11:08 07/30/25 09:12 Range/Units White Blood Count 9.4 4.4-10.8 10^3/uL Red Blood Count 4.56 4.5-5.90 10^6/uL Hemoglobin 13.8 13.5-17.5 g/dL Hematocrit 40.6 L 41.0-53.0 % Mean Corpuscular Volume 88.8 80.0-100.0 fL Mean Corpuscular Hemoglobin 30.1 28.0-32.0 pg Mean Corpuscular Hemoglobin Concent 33.9 32.0-36.0 g/dL Red Cell Distribution Width 12.1 11.8-14.3 % Platelet Count 350 140-450 10^3/uL Mean Platelet Volume 8.1 6.9-10.8 fL Neutrophils (%) (Auto) 84.3 H 37.0-80.0 % Lymphocytes (%) (Auto) 8.5 L 10.0-50.0 % Monocytes (%) (Auto) 5.9 0.0-12.0 % Eosinophils (%) (Auto) 0.5 0.0-7.0 % Basophils (%) (Auto) 0.8 0.0-2.0 % Neutrophils # (Auto) 7.9 1.6-8.6 10 ^3/uL Lymphocytes # (Auto) 0.8 0.4-5.4 10 ^3/uL Monocytes # (Auto) 0.6 0-1.3 10 ^3/uL Eosinophils # (Auto) 0 0-0.8 10 ^3/uL Basophils # (Auto) 0.1 0-0.2 10 ^3/uL Nucleated Red Blood Cells 0.0 % Erythrocyte Sedimentation Rate 56 H 0-20 mm/hr Sodium Level 135 L 136-145 mmol/L Potassium Level 3.9 3.5-5.1 mmol/L Chloride Level 94 L 98-107 mmol/L Carbon Dioxide Level 31 20-31 mmol/L Anion Gap 10 5-15 Blood Urea Nitrogen 6 L 9-23 mg/dL Creatinine 1.22 0.700-1.30 mg/dL Glomerular Filtration Rate Calc 74 >90 mL/min BUN/Creatinine Ratio 4.9 L 10.0-20.0 Serum Glucose 311 H 74-106 mg/dL Calcium Level 9.5 8.7-10.4 mg/dL C-Reactive Protein High Sensitivity 15.99 H <1.0 mg/dL SEPSIS Sepsis Screen Date sepsis recognized/suspect: Jul 30, 2025 Time Sepsis recognized/suspect: 812 Recent Procedure: No On Antibiotic Therapy: No Respiratory Rate >20: No Heart Rate >90: Yes Temp<36 C (96.8 F) or >38.3 C: No SBP <90 or MAP <65 mmHG: No New Acute Mental Status Change: No Is the patient on CPAP, BIPAP,: No Physician Orders Ct R Foot Wo Contrast (07/30/25 08:53) Blood Culture (07/30/25 10:39) Lactic Acid W/ Reflex Order (07/30/25 10:39) Heplock Iv (07/30/25 ) Vancomycin Per Pharmacy (07/30/25 11:00) Ceftriaxone 2gm/50ml (Rocephin 2gm/50ml) (07/30/25 11:00) Vancomycin 1gm/250ml Kit (07/30/25 11:30) Admit (07/30/25 11:26) Code Status (07/30/25 11:26) Vital Signs .PER UNIT PROTOCOL (07/30/25 11:26) Review Orders With Adm. (07/30/25 11:26) Encourage Activity As Tolerate (07/30/25 11:26) Consistent Carb(Ccho)Diabetes (07/30/25 Lunch) Sodium Chloride 0.9% (07/30/25 13:00) Acetaminophen Tablet (Tylenol Tablet) (07/30/25 11:30) Notify Md Of Changes From Base (07/30/25 11:26) Advance Directive (07/30/25 11:26) Basic Metabolic Panel (07/31/25 04:00) Urinalysis (07/30/25 11:) Complete Blood Count (07/31/25 04:00) Lipid Panel (07/30/25 11:) Blood Culture (07/30/25 11:26) Patient Condition (07/30/25 11:) Allergies (07/30/25 11:) Hydrocodone-Acet 5/325mg Tab (Hunker 5/32 (07/30/25 11:30) Drug Screen (07/30/25 11:26) Hemoglobin A1c (07/30/25 11:) Sodium Chloride 0.9% (07/30/25 11:30) Meropenem 1gm Ivpb (Merrem 1gm/50ml) (07/30/25 14:00) Vancomycin Per Pharmacy (07/30/25 11:30) Clindamycin 600mg Iv (Cleocin Iv) (07/30/25 14:00) Podiatry Consult (07/30/25 11:33) Wound Culture W/ Gs (07/30/25 11:34) * Wound Consult (07/30/25 ) Communication Order (07/30/25 11:35) Vital Signs Date Time Temp Pulse Resp B/P (MAP) Pulse Ox O2 Delivery O2 Flow Rate FiO2 07/30/25 08:13 97.8 98 16 136/78 100 97.8 Laboratory Tests Test 07/30/25 09:12 07/30/25 11:08 White Blood Count 9.4 10^3/uL (4.4-10.8) Lactic Acid Level Pending Assessment/Plan Assessment/Plan Assessment/plan Acute osteomyelitis of the right foot Possible necrotizing fasciitis/necrotizing cellulitis with gas-forming bacteria -CT of the right foot showed soft tissue swelling with cellulitis with a gas- forming bacteria. There is also suspected osteomyelitis into the 5th metatarsal head and 4th proximal phalanx. -start IV meropenem, vancomycin and clindamycin for possible necrotizing cellulitis -blood cultures, wound cultures were ordered. Once cultures are back we can deescalate antibiotics. -podiatry consulted -ordered MRI of the right foot -wound consult Uncontrolled type II diabetes mellitus with severe hyperglycemia -Ordered hba1c -Start mild sliding scale insulin -Start 15 units of lantus daily -Monitor blood glucose (goal 140-180) Goals of care discussed with the patient at bedside, FULL CODE Plan discussed with Dr. Agarwal Plan discussed with: Patient My Orders Orders - CODIE MADRIGAL Procedure Category Date Status Time Admit ADMIT 07/30/25 Transmitted 11:26 Code Status CODE 07/30/25 Transmitted 11:26 Vital Signs [facility] 07/30/25 In Process 11:26 Review Orders With [facility] 07/30/25 In Process Adm. 11:26 Encourage Activity As LORENA 07/30/25 In Process Tolerate 11:26 Consistent DIET 07/30/25 Transmitted Carb(Ccho)Diabetes Lunch Sodium Chloride 0.9% PHA 07/30/25 Logged 13:00 Acetaminophen Tablet PHA 07/30/25 Logged (Tylenol Tablet) 11:30 Notify Of Changes [facility] 07/30/25 In Process From Base 11:26 Advance Directive [facility] 07/30/25 In Process 11:26 Basic Metabolic Panel LAB 07/31/25 Verified 04:00 Urinalysis LAB 07/30/25 Logged 11:26 Complete Blood Count LAB 07/31/25 Verified 04:00 Lipid Panel LAB 07/30/25 Logged 11:26 Blood Culture TANYA 07/30/25 Logged 11:26 Patient Condition ORDERS 07/30/25 Transmitted 11:26 Allergies [facility] 07/30/25 In Process 11:26 Hydrocodone-Acet PHA 07/30/25 Logged 5/325mg Tab (Hunker 11:30 Drug Screen LAB 07/30/25 Logged 11:26 Hemoglobin A1c LAB 07/30/25 Logged 11:26 Sodium Chloride 0.9% PHA 07/30/25 Logged 11:30 Meropenem 1gm Ivpb PHA 07/30/25 Logged (Merrem 1gm/50ml) 14:00 Vancomycin Per PHA 07/30/25 Logged Pharmacy 11:30 Clindamycin 600mg Iv PHA 07/30/25 Logged (Cleocin Iv) 14:00 Podiatry Consult CONS 07/30/25 Transmitted 11:33 Wound Culture W/ Gs TANYA 07/30/25 Transmitted 11:34 * Wound Consult CONS 07/30/25 Transmitted Communication Order ORDERS 07/30/25 Transmitted 11:35 Date of Service: Jul 30, 2025 Billing Provider: THOMAS AGARWAL MD Common Visit Codes: [id number] INP/OBS CARE (HIGH) Secondary Visit Codes: [id number] CARE PLAN 30 MINUTES CODIE MADRIGAL RESIDENT Jul 30, 2025 11:50
[2025-07-30] MEDS: SODIUM CHLORIDE 0.9% 1,000 ML IV SCH (13:00)
[2025-07-30 13:06] VITALS: BP 150/82; PULSE 95; RESP 18; TEMP 98.7; O2SAT 96
[2025-07-30 13:09] LABS: Triglycerides 126 mg/dL (< 150)
[2025-07-30 13:11] LABS: Cholesterol 169 mg/dL (< 200)
[2025-07-30 13:12] LABS: HDL Cholesterol 64 mg/dL (40-59)
[2025-07-30 13:19] VITALS: PULSE 96; RESP 19; O2SAT 100
--- NOTE | 2025-07-30 13:21 | DVH ---
EXAM: MRI MRI R FOOT WO CONTRAST INDICATION: confirm osteomyelitis, r/o necrotizing fascitis or abscess TECHNIQUE: Multiplanar and multisequence MR imaging of the right ankle was performed in the absence of gadolinium contrast. COMPARISON: CT CT R FOOT WO CONTRAST on DOS: 07/30/25, CT CT R FOOT WO CONTRAST on DOS: 06/21/25 FINDINGS: There is altered signal present in the head of the 4th metatarsal. This is hypointense on T1 weighted images is hyperintense on T2 weighted images. Erosive changes along the undersurface of the 4th metatarsal head. There is edema in the surrounding soft tissues. No focal abscess is seen. The remaining bony elements of the foot are normal in appearance. IMPRESSION: 1. Findings suggest osteomyelitis of the 4th metatarsal head
[2025-07-30 17:00] VITALS: BP 115/73; PULSE 89; RESP 18; TEMP 98.2; O2SAT 98
[2025-07-30] MEDS: VANCOMYCIN 1GM/250ML KIT 250 ML IV SCH (18:12)
[2025-07-30] MEDS: CLINDAMYCIN 600MG IV 50 ML IV SCH (21:49)
[2025-07-31] VITALS (7 sets, daily range): BP systolic 114–157; BP diastolic 72–91; PULSE 82–110; RESP 17–20; TEMP 98–98.4; O2SAT 96–100
[2025-07-31] MEDS: MEROPENEM 1GM IVPB 50 ML IV SCH (00:36)
[2025-07-31 00:54] LABS: Urine Protein, UAD Negative (Negative)
[2025-07-31 01:29] LABS: Amphetamine Screen, Urine Neg (NEGATIVE); Barbiturate Scree,Urine Neg (NEGATIVE); Benzodiazephine Screen, Urine Neg (NEGATIVE); Cannabinoid Screen, Urine Neg (NEGATIVE); Cocaine Screen, Urine Neg (NEGATIVE); Opiate Scree,Urine Neg (NEGATIVE); Phencyclidine Screen, Urine Neg (NEGATIVE)
[2025-07-31 06:19] LABS: Hematocrit 39.3 % (41.0-53.0); Hemoglobin 13.3 g/dL (13.5-17.5); Mean Corpuscular Hemoglobin 30.0 pg (28.0-32.0); Mean Corpuscular Volume 88.5 fL (80.0-100.0); Nucleated Red Blood Cells % 0.1 %
[2025-07-31] MEDS: VANCOMYCIN 750MG KIT 100 ML IV SCH (06:19)
[2025-07-31 06:29] LABS: Anion Gap 14 (5-15); Calcium 9.6 mg/dL (8.7-10.4); Carbon Dioxide 27 mmol/L (20-31); Potassium 3.6 mmol/L (3.5-5.1); Sodium 138 mmol/L (136-145)
[2025-07-31 06:35] LABS: BUN/Creatinine Ratio 8.7 (10.0-20.0)
[2025-07-31 06:36] LABS: Blood Urea Nitrogen 8 mg/dL (9-23); Chloride 97 mmol/L (98-107); Glucose 252 mg/dL (74-106)
[2025-07-31] MEDS ORDERED: DEXTROSE (50%) 50ML SYRG IV PRN (07:00)
[2025-07-31] MEDS: ACCU-CHEK COMFORT CURVE STRIP VI SCH (07:41)
[2025-07-31] MEDS: InsuLIN REG 1unit/0.01ml Soln (100units/ml) SC SCH ×2 (07:45→21:55)
[2025-07-31] MEDS: INSULIN LANTUS (GLARGINE) 1 /0.01ml (100units/ml) SC SCH (07:45)
--- NOTE | 2025-07-31 15:41 | MEDREC ---
[facility] Intervention Section I [facility] Intervention: Duplication of therapy (PER [facility] GUIDELINE FOR THE EMPIRIC TREATMENT OF NECROTIZING FASCIITIS COVER FOR MRSA, AEROBIC AND ANAEROBIC ORGANISMS PLEASE CONSIDER D/C CLINDAMYCIN SINCE DUPLICATION WITH MEROPENEM WHICH COVERS ALREADY FOR ANAEROBIC ORGANISMS - CONSIDER ZOSYN INSTEAD OF VIRGIE PENEM IF NO RISK FACTORS FOR ESBL INFECTION), Review courses of therapy ROSANGELA GRIGGS PHARMACIST Jul 31, 2025 15:41
--- NOTE | 2025-07-31 18:03 | DVHPN2 ---
Subjective In bed resting Reviewed: H&P Changes from previous H/P or p: No Changes Eyes: No Pain, No Vision change, No Conjunctivae inflammation, No Eyelid inflammation, No Other, No Redness ENT: No Ear pain, No Ear discharge, No Nose pain, No Nose discharge, No Nose congestion, No Mouth pain, No Mouth swelling, No Throat pain, No Throat swelling, No Other Cardiovascular: No Chest Pain, No Palpitations, No Orthopnea, No Paroxysmal Noc. Dyspnea, No Edema, No Lt Headedness, No Other Respiratory: No Cough, No Dry, No Shortness of breath, No SOB with excertion, No Wheezing, No Hemoptysis, No Pleuritic Pain, No Sputum, No Other Gastrointestinal: No Nausea, No Vomiting, No Abdominal Pain, No Diarrhea, No Constipation, No Melena, No Hematochezia, No Other Genitourinary: No Dysuria, No Frequency, No Incontinence, No Hematuria, No Retention, No Other Musculoskeletal: No other, No neck pain, No shoulder pain, No arm pain, No back pain, No hand pain, No leg pain; foot pain (Right foot pain in the dorsal aspect of the foot upon palpation and reports edema) Skin: No Rash, No Lesions, No Jaundice, No Bruising, No Other Objective Vitals Vital Signs Date Time Temp Pulse Resp B/P (MAP) Pulse Ox O2 Delivery O2 Flow Rate FiO2 07/31/25 17:15 98.0 82 20 132/86 (101) 97 98.0 07/31/25 08:00 Room Air* 0 21 Intake/Output Intake and Output 07/31/25 05:00 Intake Total 50 ml Balance 50 ml Intake IV Total 50 ml General Appearance: Alert, Oriented X3 HEENT: Atraumatic Lungs: Clear to auscultation Cardiovascular: Regular rate, Normal S1, Normal S2 Abdomen: Normal bowel sounds Medications Current Medications Medications Dose Ordered Sig/Eric Route Start Time Stop Time Status Last Admin Dose Admin Vancomycin HCl 0 ml @ 0 mls/hr PER PHARMACY IV 07/30/25 11:00 Cancel Vancomycin HCl 250 ml @ 250 mls/hr Q1H IV 07/30/25 11:30 07/30/25 13:29 Cancel Sodium Chloride 1,000 ml @ 60 mls/hr [id number] IV 07/30/25 13:00 Acetaminophen 650 mg Q6HP PRN PO 07/30/25 11:30 Acetaminophen/ Hydrocodone Bitart 1 tab Q4HP PRN PO 07/30/25 11:30 Vancomycin HCl 0 ml @ 0 mls/hr PER PHARMACY IV 07/30/25 11:30 Vancomycin HCl 100 ml @ 100 mls/hr Q12H IV 07/31/25 06:00 07/31/25 06:19 100 MLS/HR Insulin Glargine 15 units QAM SC 07/31/25 07:00 07/31/25 07:45 15 UNITS Diagnostic Test (Pha) 1 strip ACHS 07/31/25 07:00 07/31/25 11:30 1 STRIP Insulin Human Regular HS SC 07/31/25 22:00 Insulin Human Regular AC SC 07/31/25 07:00 07/31/25 12:34 6 UNITS Dextrose 50 ml UD PRN IV 07/31/25 07:00 Piperacillin Sod/ Tazobactam Sod 100 ml @ 25 mls/hr Q6H IV 07/31/25 22:00 Laboratory Results Laboratory Tests 07/31/25 05:00 Chemistry Test 07/31/25 05:00 Calcium Level 9.6 mg/dL (8.7-10.4) Urinalysis Test 07/31/25 00:00 Urine Color Light-orange (Yellow) Urine Clarity Clear (Clear) Urine pH 6.0 (5.0-9.0) Urine Specific [place] 1.023 (1.001-1.035) Urine Protein Negative (Negative) Urine Ketones 1+ (Negative) H Urine Blood Negative /uL (Negative) Urine Nitrite Negative (Negative) Urine Bilirubin Negative (Negative) Urine Urobilinogen Normal mg/dL (Negative) Urine Leukocyte Esterase Negative /uL (Negative) Urine RBC None seen /hpf (0 - 3) Urine Microscopic WBC 3 /HPF (0-3) Urine Squamous Epithelial Cells Few /hpf (<5) Urine Bacteria None seen /hpf (None Seen) Urine Glucose 4+ mg/dL (Normal) H Microbiology Microbiology Date/Time Source Procedure Growth Status 07/30/25 11:08 Blood Blood Culture - Preliminary NO GROWTH AFTER 24 HOURS OF INCUBATION. Resulted Assessment/Plan Assessment/Plan Acute osteomyelitis of the right foot Possible necrotizing fasciitis/necrotizing cellulitis with gas-forming bacteria -CT of the right foot showed soft tissue swelling with cellulitis with a gas- forming bacteria. There is also suspected osteomyelitis into the 5th metatarsal head and 4th proximal phalanx. - MRI confirmed OM of 4th toe -Changed IV abx to vanco and zoyn -blood cultures, wound cultures were ordered. Once cultures are back we can deescalate antibiotics. -podiatry consulted -wound consult Uncontrolled type II diabetes mellitus with severe hyperglycemia -Ordered hba1c -Start mild sliding scale insulin -Start 15 units of lantus daily -Monitor blood glucose (goal 140-180) Plan discussed with: Patient My Orders Orders - CHADD KING MD Procedure Category Date Status Time Piperacillin-Tazob PHA 07/31/25 In Process 3.375gm (Zosyn 3.375g 22:00 Apply: LORENA 07/31/25 In Process 12:45 * Dietary Consult CONS 07/31/25 Transmitted 17:54 Date of Service: Jul 31, 2025 Billing Provider: CHADD KING MD Common Visit Codes: [id number] INP/OBS CARE(HIGH) CHADD KING MD Jul 31, 2025 18:03
[2025-07-31] MEDS: PIPERACILLIN-TAZOB 3.375GM 100 ML IV SCH (21:36)
[2025-08-01] VITALS (9 sets, daily range): BP systolic 119–142; BP diastolic 71–85; PULSE 73–98; RESP 18–20; TEMP 97.6–98.7; O2SAT 94–100
[2025-08-01 09:35] LABS: INR 1.14 (0.9-1.15); Partial Thromboplastin Time 30.0 SEC (24.5-34.5); Prothrombin Time 11.9 sec (9.3-11.8)
--- NOTE | 2025-08-01 10:56 | MEDREC ---
[facility], [facility] ASP Intervention Section I [facility] ASP Intervention: Duplication of therapy (PER [employer] GUIDELINE FOR THE EMPIRIC TREATMENT OF NECROTIZING FASCIITIS COVER FOR MRSA, AEROBIC AND ANAEROBIC ORGANISMS PLEASE CONSIDER D/C CLINDAMYCIN SINCE DUPLICATION WITH MEROPENEM WHICH COVERS ALREADY FOR ANAEROBIC ORGANISMS - CONSIDER ZOSYN INSTEAD OF VIRGIE PENEM IF NO RISK FACTORS FOR ESBL INFECTION), Review courses of therapy (Please consider adding Clindmycin to Zosyn + Vanco for treatment of necrotizing fasciitis.) [facility] RESIDENT Aug 01, 2025 10:56
--- NOTE | 2025-08-01 11:54 | DVHCONRES ---
Date Seen: Aug 01, 2025 Reason for Consultation Right foot wound History of Present Illness This is a 49-year-old male with past medical history of type 2 diabetes mellitus non compliant with his medications. Patient presented to the ED with chief complaint of right foot pain and edema. Patient reports that he has been dealing with a right foot nonhealing ulcer in the plantar aspect of the right foot for the past four months. 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 Today he presented to the ED with similar complaint. Upon my examination, there is an open wound in the plantar aspect of the right foot that is not painful to the touch and is actually not secreting any pus or material from the wound. There is mild edema in the dorsal aspect of the right foot that is very tender to palpation but no crepitus at this time. Initial labs were grossly unremarkable except for mild LINDA and elevated blood glucose at 311. CT of the right foot showed soft tissue swelling and cellulitis with a gas-forming bacteria and suspected osteomyelitis of the 5th metatarsal head and 4th proximal phalanx. Based on possible gas-forming bacteria we started the patient on IV meropenem, vancomycin and clindamycin to cover for necrotizing cellulitis/fascitis. We ordered blood cultures, wound cultures and Podiatry consult. Once cultures are back we can deescalate antibiotics accordingly. Patient will be admitted for further assessment and management of osteomyelitis of the right foot. Past Medical History See H&P Past Surgical History See H&P Family History: Patient reports no known family medical history. Allergies: Coded Allergies: No Known Drug Allergy (Verified Allergy, Unknown, 06/21/25) Current Medications Current Medications Medications (Trade) Dose Ordered Sig/Eric Route PRN Reason Start Time Stop Time Status Last Admin Insulin Human Regular (InsuLIN R) HS SC 07/31/25 22:00 07/31/25 21:55 Piperacillin Sod/ Tazobactam Sod 100 ml @ 25 mls/hr Q6H IV 07/31/25 22:00 08/01/25 09:13 Vital Signs Vital Signs Date Time Temp Pulse Resp B/P (MAP) Pulse Ox O2 Delivery O2 Flow Rate FiO2 08/01/25 09:17 98.5 74 18 124/72 (89) 96 98.5 07/31/25 20:00 Room Air* 0 21 Physical Exam Dermatological: Skin is dry with mild erythema and some maceration around the wound site No gross deformities noted Mild non-pitting edema present bilaterally Right plantar wound with area of fluctuance purulent drainage and cellulitis Vascular: Dorsalis pedis and posterior tibial pulses are 1+ bilaterally Capillary refill is under 2 seconds Skin temperature is warm bilaterally Neurologic: Protective sensation is absent on the plantar forefoot bilaterally Monofilament testing reveals decreased sensation in multiple plantar sites Musculoskeletal: Range of motion at the ankle and MTP joints is within normal limits. Strength is 5/5 in all tested muscle groups. Gait is antalgic due to offloading of the affected limb. Labs/Diagnostic Data Labs Test 08/01/25 08:37 08/01/25 06:01 08/01/25 05:55 07/31/25 05:00 Range/Units Prothrombin Time 11.9 H 9.3-11.8 sec Prothrombin Time INR 1.14 0.9-1.15 Activated Partial Thromboplast Time 30.0 24.5-34.5 SEC POC Glucose 283 H 70-106 mg/dl Creatinine 0.81 0.700-1.30 mg/dL Glomerular Filtration Rate Calc 109 >90 mL/min White Blood Count 7.0 # 4.4-10.8 10^3/uL Red Blood Count 4.44 L 4.5-5.90 10^6/uL Hemoglobin 13.3 L 13.5-17.5 g/dL Hematocrit 39.3 L 41.0-53.0 % Mean Corpuscular Volume 88.5 80.0-100.0 fL Mean Corpuscular Hemoglobin 30.0 28.0-32.0 pg Mean Corpuscular Hemoglobin Concent 33.9 32.0-36.0 g/dL Red Cell Distribution Width 11.9 11.8-14.3 % Platelet Count 343 140-450 10^3/uL Mean Platelet Volume 8.3 6.9-10.8 fL Neutrophils (%) (Auto) 60.8 37.0-80.0 % Lymphocytes (%) (Auto) 26.3 10.0-50.0 % Monocytes (%) (Auto) 9.7 0.0-12.0 % Eosinophils (%) (Auto) 2.4 0.0-7.0 % Basophils (%) (Auto) 0.8 0.0-2.0 % Neutrophils # (Auto) 4.2 1.6-8.6 10 ^3/uL Lymphocytes # (Auto) 1.8 0.4-5.4 10 ^3/uL Monocytes # (Auto) 0.7 0-1.3 10 ^3/uL Eosinophils # (Auto) 0.2 0-0.8 10 ^3/uL Basophils # (Auto) 0.1 0-0.2 10 ^3/uL Nucleated Red Blood Cells 0.1 % Sodium Level 138 136-145 mmol/L Potassium Level 3.6 3.5-5.1 mmol/L Chloride Level 97 L 98-107 mmol/L Carbon Dioxide Level 27 20-31 mmol/L Anion Gap 14 5-15 Blood Urea Nitrogen 8 L 9-23 mg/dL BUN/Creatinine Ratio 8.7 L 10.0-20.0 Serum Glucose 252 H 74-106 mg/dL Calcium Level 9.6 8.7-10.4 mg/dL Test 07/31/25 00:00 07/30/25 11:08 07/30/25 09:12 Range/Units Urine Color Light-orange Yellow Urine Clarity Clear Clear Urine pH 6.0 5.0-9.0 Urine Specific [place] 1.023 1.001-1.035 Urine Protein Negative Negative Urine Ketones 1+ H Negative Urine Blood Negative Negative /uL Urine Nitrite Negative Negative Urine Bilirubin Negative Negative Urine Urobilinogen Normal Negative mg/dL Urine Leukocyte Esterase Negative Negative /uL Urine RBC None seen 0 - 3 /hpf Urine Microscopic WBC 3 0-3 /HPF Urine Squamous Epithelial Cells Few <5 /hpf Urine Bacteria None seen None Seen /hpf Urine Glucose 4+ H Normal mg/dL Urine Opiates Screen Neg NEGATIVE Urine Fentanyl Screen Neg NEGATIVE Urine Barbiturates Screen Neg NEGATIVE Urine Phencyclidine Screen Neg NEGATIVE Urine Amphetamines Screen Neg NEGATIVE Urine Benzodiazepines Screen Neg NEGATIVE Urine Cocaine Screen Neg NEGATIVE Urine Cannabinoids Screen Neg NEGATIVE Lactic Acid Level 1.3 0.4-2.0 mmol/L Erythrocyte Sedimentation Rate 56 H 0-20 mm/hr Hemoglobin A1c 9.1 H <5.7 % A1C C-Reactive Protein High Sensitivity 15.99 H <1.0 mg/dL Triglycerides Level 126 < 150 mg/dL Cholesterol Level 169 < 200 mg/dL LDL Cholesterol 70 < 100 mg/dL HDL Cholesterol 64 H 40-59 mg/dL Microbiology Date/Time Source Procedure Growth Status 07/31/25 14:39 Foot Right Gram Stain Pending Resulted 07/31/25 14:39 Foot Right Wound Culture - Preliminary Resulted 07/30/25 11:08 Blood Blood Culture - Preliminary NO GROWTH AFTER 48 HOURS OF INCUBATION. Resulted Problems(with codes): (1) Uncontrolled type 2 diabetes mellitus (2) Cellulitis of foot (3) Osteomyelitis (4) Diabetic foot ulcer Plan/Recommendation ASSESSMENT: Patient is a 49 year old seen on the floor for a worsening ulcer PLAN: - The patients chart was reviewed, clinical findings were discussed with the patient, the etiologies of the conditions were discussed in detail, and a treatment plan was agreed to at this time, with both oral and written inst ructions provided. - reviewed advanced imaging - discussed plan is to perform an incision and drainage - patient has been NPO since midnight - take him to the OR today - we will get cultures in the OR - can weightbear as tolerated in postoperative shoe All questions were answered and concerns addressed to the patient's satisfaction. The patient was given the phone number to the clinic and was told how to make contact with the clinic should any concerns or questions arise. Patient understands that if any questions or concerns arise prior to the next appointment, we should be contacted immediately. FOLLOW-UP: Continue to follow while inpatient Plan discussed with: Patient Visit Coding Podiatry Date of Service if different f: Aug 01, 2025 Billing Provider: LINDSEY ARCOS DPM Podiatry Common Visit Codes: CONSULT ONLY Podiatry Consult Codes: [id number] NEW/EST HI 80 LINDSEY ARCOS DPM Aug 01, 2025 11:54
[2025-08-01] MEDS: BUPIVACAINE 0.5% P/F INJ 10 ML VIAL ONE (12:31)
--- NOTE | 2025-08-01 12:39 | DVHOP2 ---
Operative Report - 2 Report Details Date: 08/01/25 Preop Diagnosis: 1. Right foot osteomyelitis 2. Right foot abscess 3. Right foot cellulitis Postop Diagnosis: Same as preop Surgeon: Lindsey Arcos MD Anesthesiologist: See anesthesia Anesthesia: Mac Consent: The patient was informed of the risks and benefits of the procedure. These include but are not limited to complications of anesthesia, postoperative infection, incomplete relief of symptoms, recurrence of symptoms, damage to blood vessels, nerves and tendons, deep venous thrombosis, pulmonary embolism and possible need for repeat surgery in the future. Complications: None Estimated Blood Loss: Minimal Fluids: See anesthesia Findings: Consistent with diagnosis Indications for Surgery: Worsening foot wound Name of Procedure Performed 1. Right foot I&D to bone (16204) 2. Right foot metatarsal bone biopsy () Procedure Details Procedure Details: PRE-PROCEDURE INFORMATION: In the pre-op holding area, the extremity to be operated on was clearly marked and the patient verified correct laterality of the marking. The patient was transferred to the OR table and placed in a supine position. A timeout was performed in which identification of the correct patient, procedure, location, and materials was done. The right foot and leg were prepped and draped in normal sterile fashion. DESCRIPTION OF PROCEDURE: Attention was directed to the right foot where area of fluctuance was noted. An incision was made over this area and was deepened through blunt dissection. The incision was deepened to the level of abscess and bone. Care was taken to the dissection to avoid any neurovascular and tendinous structures. The incision was deepened to the bone, and the abscess appeared to be purulent fluid consistent with pus. The cortices of the bone was then removed with rongeur an all necrotic tissue. After the abscess was drained, the area was irrigated with 3 L normal saline using cysto tubing. Deep cultures were then obtained from the wound. The area was then inspected and any areas of tracking, especially along the tendons were also drained. A bone biopsy was then taken of the right 5th metatarsal which was deepened to the muscle belly and tendons. The bone was then sent to pathology to determine the extent of osteomyelitis. The wound was packed with Betadine-soaked gauze and we will need to be closed at a later date. POSTOPERATIVE INFORMATION: The patient tolerated the above noted procedure and anesthesia well and was transferred to the PACU with vital signs stable, and vascular status intact with capillary refill intact to all digits. Patient will continue IV antibiotics. Deep cultures were taken. Patient will need 6 weeks IV antibiotics if unable to see you we will consider p.o. antibiotics pending cultures. Patient will need subsequent procedure on Wednesday with possible closure. Specimen: Right 4th metatarsal Condition Good Disposition Home Visit Coding Podiatry Date of Service if different f: Aug 01, 2025 Billing Provider: LINDSEY ARCOS DPM Podiatry Common Visit Codes: PROCEDURE ONLY LINDSEY ARCOS DPM Aug 01, 2025 12:39
--- NOTE | 2025-08-01 14:00 | DVHPN2 ---
Subjective In bed resting Reviewed: H&P Changes from previous H/P or p: No Changes Eyes: No Pain, No Vision change, No Conjunctivae inflammation, No Eyelid inflammation, No Other, No Redness ENT: No Ear pain, No Ear discharge, No Nose pain, No Nose discharge, No Nose congestion, No Mouth pain, No Mouth swelling, No Throat pain, No Throat swelling, No Other Cardiovascular: No Chest Pain, No Palpitations, No Orthopnea, No Paroxysmal Noc. Dyspnea, No Edema, No Lt Headedness, No Other Respiratory: No Cough, No Dry, No Shortness of breath, No SOB with excertion, No Wheezing, No Hemoptysis, No Pleuritic Pain, No Sputum, No Other Gastrointestinal: No Nausea, No Vomiting, No Abdominal Pain, No Diarrhea, No Constipation, No Melena, No Hematochezia, No Other Genitourinary: No Dysuria, No Frequency, No Incontinence, No Hematuria, No Retention, No Other Musculoskeletal: No other, No neck pain, No shoulder pain, No arm pain, No back pain, No hand pain, No leg pain; foot pain (Right foot pain in the dorsal aspect of the foot upon palpation and reports edema) Skin: No Rash, No Lesions, No Jaundice, No Bruising, No Other Objective Vitals Vital Signs Date Time Temp Pulse Resp B/P (MAP) Pulse Ox O2 Delivery O2 Flow Rate FiO2 08/01/25 13:20 76 15 140/76 (97) 100 08/01/25 13:00 Room Air 0 100 08/01/25 12:50 98.2 98.2 Intake/Output Intake and Output 08/01/25 07:00 Intake Total 300 ml Balance 300 ml Intake IV Total 300 ml General Appearance: Alert, Oriented X3 HEENT: Atraumatic Lungs: Clear to auscultation Cardiovascular: Regular rate, Normal S1, Normal S2 Abdomen: Normal bowel sounds Medications Current Medications Medications Dose Ordered Sig/Eric Route Start Time Stop Time Status Last Admin Dose Admin Vancomycin HCl 0 ml @ 0 mls/hr PER PHARMACY IV 07/30/25 11:00 Cancel Vancomycin HCl 250 ml @ 250 mls/hr Q1H IV 07/30/25 11:30 07/30/25 13:29 Cancel Sodium Chloride 1,000 ml @ 60 mls/hr [id number] IV 07/30/25 13:00 Acetaminophen 650 mg Q6HP PRN PO 07/30/25 11:30 Acetaminophen/ Hydrocodone Bitart 1 tab Q4HP PRN PO 07/30/25 11:30 Vancomycin HCl 0 ml @ 0 mls/hr PER PHARMACY IV 07/30/25 11:30 Vancomycin HCl 100 ml @ 100 mls/hr Q12H IV 07/31/25 06:00 08/01/25 05:34 100 MLS/HR Insulin Glargine 15 units QAM SC 07/31/25 07:00 08/01/25 06:23 15 UNITS Diagnostic Test (Pha) 1 strip ACHS 07/31/25 07:00 08/01/25 06:22 1 STRIP Insulin Human Regular HS SC 07/31/25 22:00 07/31/25 21:55 4 UNITS Insulin Human Regular AC SC 07/31/25 07:00 08/01/25 06:22 9 UNITS Dextrose 50 ml UD PRN IV 07/31/25 07:00 Piperacillin Sod/ Tazobactam Sod 100 ml @ 25 mls/hr Q6H IV 07/31/25 22:00 08/01/25 09:13 25 MLS/HR Laboratory Results Laboratory Tests 07/31/25 05:00 08/01/25 05:55 Coagulation Test 08/01/25 08:37 Prothrombin Time 11.9 sec (9.3-11.8) H Prothrombin Time INR 1.14 (0.9-1.15) Activated Partial Thromboplast Time 30.0 SEC (24.5-34.5) Urinalysis Test 07/31/25 00:00 Urine Color Light-orange (Yellow) Urine Clarity Clear (Clear) Urine pH 6.0 (5.0-9.0) Urine Specific [place] 1.023 (1.001-1.035) Urine Protein Negative (Negative) Urine Ketones 1+ (Negative) H Urine Blood Negative /uL (Negative) Urine Nitrite Negative (Negative) Urine Bilirubin Negative (Negative) Urine Urobilinogen Normal mg/dL (Negative) Urine Leukocyte Esterase Negative /uL (Negative) Urine RBC None seen /hpf (0 - 3) Urine Microscopic WBC 3 /HPF (0-3) Urine Squamous Epithelial Cells Few /hpf (<5) Urine Bacteria None seen /hpf (None Seen) Urine Glucose 4+ mg/dL (Normal) H Microbiology Microbiology Date/Time Source Procedure Growth Status 07/31/25 14:39 Foot Right Gram Stain Pending Resulted 07/31/25 14:39 Foot Right Wound Culture - Preliminary Resulted 07/30/25 11:08 Blood Blood Culture - Preliminary NO GROWTH AFTER 48 HOURS OF INCUBATION. Resulted Assessment/Plan Assessment/Plan Acute osteomyelitis of the right foot Possible necrotizing fasciitis/necrotizing cellulitis with gas-forming bacteria -CT of the right foot showed soft tissue swelling with cellulitis with a gas- forming bacteria. There is also suspected osteomyelitis into the 5th metatarsal head and 4th proximal phalanx. - MRI confirmed OM of 4th toe -Changed IV abx to vanco and zoyn -blood cultures, wound cultures were ordered. Once cultures are back we can deescalate antibiotics. -podiatry consulted>going for toe amputation -wound consult Uncontrolled type II diabetes mellitus with severe hyperglycemia -Ordered hba1c -Start mild sliding scale insulin -Start 15 units of lantus daily -Monitor blood glucose (goal 140-180) Plan discussed with: Patient My Orders Orders - CHADD KING MD Procedure Category Date Status Time Piperacillin-Tazob PHA 07/31/25 In Process 3.375gm (Zosyn 3.375g 22:00 Apply: LORENA 07/31/25 In Process 12:45 * Dietary Consult CONS 07/31/25 Transmitted 17:54 Date of Service: Aug 01, 2025 Billing Provider: CHADD KING MD Common Visit Codes: [id number] INP/OBS CARE(HIGH) CHADD KING MD Aug 01, 2025 14:00
[2025-08-02] VITALS (8 sets, daily range): BP systolic 119–131; BP diastolic 68–83; PULSE 67–84; RESP 16–18; TEMP 97.9–99.9; O2SAT 94–99
--- NOTE | 2025-08-02 12:39 | MEDREC ---
[facility] ASP Intervention Section I [facility] ASP Intervention: Deescalate AB based on CS (Wound culture came back MSSA, please de-escalate antibiotic based on susceptibility) KEYLA AYOUB [facility] RESIDENT Aug 02, 2025 12:39
--- NOTE | 2025-08-02 13:12 | DVHPN2 ---
Subjective In bed resting Reviewed: H&P Changes from previous H/P or p: No Changes Eyes: No Pain, No Vision change, No Conjunctivae inflammation, No Eyelid inflammation, No Other, No Redness ENT: No Ear pain, No Ear discharge, No Nose pain, No Nose discharge, No Nose congestion, No Mouth pain, No Mouth swelling, No Throat pain, No Throat swelling, No Other Cardiovascular: No Chest Pain, No Palpitations, No Orthopnea, No Paroxysmal Noc. Dyspnea, No Edema, No Lt Headedness, No Other Respiratory: No Cough, No Dry, No Shortness of breath, No SOB with excertion, No Wheezing, No Hemoptysis, No Pleuritic Pain, No Sputum, No Other Gastrointestinal: No Nausea, No Vomiting, No Abdominal Pain, No Diarrhea, No Constipation, No Melena, No Hematochezia, No Other Genitourinary: No Dysuria, No Frequency, No Incontinence, No Hematuria, No Retention, No Other Musculoskeletal: No other, No neck pain, No shoulder pain, No arm pain, No back pain, No hand pain, No leg pain; foot pain (Right foot pain in the dorsal aspect of the foot upon palpation and reports edema) Skin: No Rash, No Lesions, No Jaundice, No Bruising, No Other Objective Vitals Vital Signs Date Time Temp Pulse Resp B/P (MAP) Pulse Ox O2 Delivery O2 Flow Rate FiO2 08/02/25 09:00 98.0 79 16 131/80 (97) 97 98.0 08/02/25 08:00 Room Air* 0 21 Intake/Output Intake and Output 08/02/25 07:00 Intake Total 800 ml Balance 800 ml Intake IV Total 800 ml General Appearance: Alert, Oriented X3 HEENT: Atraumatic Lungs: Clear to auscultation Cardiovascular: Regular rate, Normal S1, Normal S2 Abdomen: Normal bowel sounds Medications Current Medications Medications Dose Ordered Sig/Eric Route Start Time Stop Time Status Last Admin Dose Admin Vancomycin HCl 0 ml @ 0 mls/hr PER PHARMACY IV 07/30/25 11:00 Cancel Vancomycin HCl 250 ml @ 250 mls/hr Q1H IV 07/30/25 11:30 07/30/25 13:29 Cancel Sodium Chloride 1,000 ml @ 60 mls/hr [id number] IV 07/30/25 13:00 08/02/25 07:40 60 MLS/HR Acetaminophen 650 mg Q6HP PRN PO 07/30/25 11:30 Acetaminophen/ Hydrocodone Bitart 1 tab Q4HP PRN PO 07/30/25 11:30 Vancomycin HCl 0 ml @ 0 mls/hr PER PHARMACY IV 07/30/25 11:30 Insulin Glargine 15 units QAM SC 07/31/25 07:00 08/02/25 06:04 15 UNITS Diagnostic Test (Pha) 1 strip ACHS 07/31/25 07:00 08/02/25 11:30 1 STRIP Insulin Human Regular HS SC 07/31/25 22:00 07/31/25 21:55 4 UNITS Insulin Human Regular AC SC 07/31/25 07:00 08/02/25 11:30 3 UNITS Dextrose 50 ml UD PRN IV 07/31/25 07:00 Piperacillin Sod/ Tazobactam Sod 100 ml @ 25 mls/hr Q6H IV 07/31/25 22:00 08/02/25 10:00 25 MLS/HR Vancomycin HCl 250 ml @ 200 mls/hr Q8H IV 08/01/25 19:00 08/02/25 11:00 200 MLS/HR Laboratory Results Laboratory Tests 07/31/25 05:00 08/02/25 05:33 Urinalysis Test 07/31/25 00:00 Urine Color Light-orange (Yellow) Urine Clarity Clear (Clear) Urine pH 6.0 (5.0-9.0) Urine Specific [place] 1.023 (1.001-1.035) Urine Protein Negative (Negative) Urine Ketones 1+ (Negative) H Urine Blood Negative /uL (Negative) Urine Nitrite Negative (Negative) Urine Bilirubin Negative (Negative) Urine Urobilinogen Normal mg/dL (Negative) Urine Leukocyte Esterase Negative /uL (Negative) Urine RBC None seen /hpf (0 - 3) Urine Microscopic WBC 3 /HPF (0-3) Urine Squamous Epithelial Cells Few /hpf (<5) Urine Bacteria None seen /hpf (None Seen) Urine Glucose 4+ mg/dL (Normal) H Microbiology Microbiology Date/Time Source Procedure Growth Status 08/01/25 13:19 Foot Right Gram Stain Pending Resulted 08/01/25 13:19 Foot Right Anaerobic Culture Pending Resulted 08/01/25 13:19 Foot Right Aerobic Culture - Preliminary Resulted 07/30/25 11:08 Blood Blood Culture - Preliminary NO GROWTH AFTER 72 HOURS OF INCUBATION. Resulted Assessment/Plan Assessment/Plan Acute osteomyelitis of the right foot Possible necrotizing fasciitis/necrotizing cellulitis with gas-forming bacteria -CT of the right foot showed soft tissue swelling with cellulitis with a gas- forming bacteria. There is also suspected osteomyelitis into the 5th metatarsal head and 4th proximal phalanx. - MRI confirmed OM of 4th toe -Changed IV abx to vanco and zoyn -blood cultures, wound cultures were ordered. Once cultures are back we can deescalate antibiotics. -podiatry consulted>s/p I and D and abscess drainage with biopsy -wound consult Uncontrolled type II diabetes mellitus with severe hyperglycemia -Start mild sliding scale insulin -Monitor blood glucose (goal 140-180) Plan discussed with: Patient Date of Service: Aug 02, 2025 Billing Provider: CHADD KING MD Common Visit Codes: [id number] INP/OBS CARE(HIGH) CHADD KING MD Aug 02, 2025 13:12
[2025-08-02] MEDS ORDERED: PROPOFOL 10 MG/ML 20 ML IV ONE (15:18)
[2025-08-02] MEDS ORDERED: fentaNYL CITRATE 100 MCG/2 ML VL IV ONE (15:19)
[2025-08-02] MEDS ORDERED: KETAMINE 50mg/ML 1ml syringe IV ONE (15:19)
[2025-08-02] MEDS ORDERED: MIDAZOLAM HCL 2MG/2ML 2ml VIAL (1mg/ml) IV ONE (15:20)
[2025-08-03] VITALS (8 sets, daily range): BP systolic 123–129; BP diastolic 73–84; PULSE 63–72; RESP 16–20; TEMP 37.1; O2SAT 95–100
[2025-08-03 06:14] LABS: Hematocrit 34.0 % (41.0-53.0); Hemoglobin 11.7 g/dL (13.5-17.5); Mean Corpuscular Hemoglobin 30.6 pg (28.0-32.0); Mean Corpuscular Volume 88.6 fL (80.0-100.0); Nucleated Red Blood Cells % 0.0 %
[2025-08-03] MEDS: VANCOMYCIN 1GM/250ML KIT 250 ML IV SCH (10:02)
[2025-08-03] MEDS: VANCOMYCIN HCL 1000 MG VL ONE (11:17)
[2025-08-03] MEDS ORDERED: fentaNYL CITRATE 100 MCG/2 ML VL ONE (11:40)
[2025-08-03] MEDS ORDERED: LIDOCAINE 1% INJ PF 5ML AMP ONE (11:40)
[2025-08-03] MEDS ORDERED: ONDANSETRON HCL 4 MG/2 ML VIAL ONE (11:40)
[2025-08-03] MEDS ORDERED: MIDAZOLAM HCL 2MG/2ML 2ml VIAL (1mg/ml) ONE (11:40)
[2025-08-03] MEDS ORDERED: METOCLOPRAMIDE HCL 5MG/ml INJ 2ml VIAL ONE (11:40)
[2025-08-03] MEDS ORDERED: PROPOFOL 10 MG/ML 20 ML IV ONE (11:41)
--- NOTE | 2025-08-03 11:51 | DVHPN2 ---
Subjective This is a 49-year-old male with past medical history of type 2 diabetes mellitus non compliant with his medications. Patient presented to the ED with chief complaint of right foot pain and edema. Patient reports that he has been dealing with a right foot nonhealing ulcer in the plantar aspect of the right foot for the past four months. 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 Today he presented to the ED with similar complaint. Upon my examination, there is an open wound in the plantar aspect of the right foot that is not painful to the touch and is actually not secreting any pus or material from the wound. There is mild edema in the dorsal aspect of the right foot that is very tender to palpation but no crepitus at this time. Initial labs were grossly unremarkable except for mild LINDA and elevated blood glucose at 311. CT of the right foot showed soft tissue swelling and cellulitis with a gas-forming bacteria and suspected osteomyelitis of the 5th metatarsal head and 4th proximal phalanx. Based on possible gas- forming bacteria we started the patient on IV meropenem, vancomycin and clindamycin to cover for necrotizing cellulitis/fascitis. We ordered blood cultures, wound cultures and Podiatry consult. Once cultures are back we can deescalate antibiotics accordingly. Patient will be admitted for further assessment and management of osteomyelitis of the right foot. Reviewed: H&P Changes from previous H/P or p: No Changes Eyes: No Pain, No Vision change, No Conjunctivae inflammation, No Eyelid inflammation, No Other, No Redness ENT: No Ear pain, No Ear discharge, No Nose pain, No Nose discharge, No Nose congestion, No Mouth pain, No Mouth swelling, No Throat pain, No Throat swelling, No Other Cardiovascular: No Chest Pain, No Palpitations, No Orthopnea, No Paroxysmal Noc. Dyspnea, No Edema, No Lt Headedness, No Other Respiratory: No Cough, No Dry, No Shortness of breath, No SOB with excertion, No Wheezing, No Hemoptysis, No Pleuritic Pain, No Sputum, No Other Gastrointestinal: No Nausea, No Vomiting, No Abdominal Pain, No Diarrhea, No Constipation, No Melena, No Hematochezia, No Other Genitourinary: No Dysuria, No Frequency, No Incontinence, No Hematuria, No Retention, No Other Musculoskeletal: No other, No neck pain, No shoulder pain, No arm pain, No back pain, No hand pain, No leg pain; foot pain (Right foot pain in the dorsal aspect of the foot upon palpation and reports edema) Skin: No Rash, No Lesions, No Jaundice, No Bruising, No Other Objective Vitals Vital Signs Date Time Temp Pulse Resp B/P (MAP) Pulse Ox O2 Delivery O2 Flow Rate FiO2 08/03/25 09:00 98.8 69 17 129/83 (98) 96 98.8 08/03/25 08:00 Room Air* 0 21 Intake/Output Intake and Output 08/03/25 07:00 Intake Total 1070 ml Balance 1070 ml Intake IV Total 1070 ml Exam Dermatological: Skin is dry with mild erythema and some maceration around the wound site No gross deformities noted Mild non-pitting edema present bilaterally Right plantar wound with mixed fibrotic granular base Vascular: Dorsalis pedis and posterior tibial pulses are 1+ bilaterally Capillary refill is under 2 seconds Skin temperature is warm bilaterally Neurologic: Protective sensation is absent on the plantar forefoot bilaterally Monofilament testing reveals decreased sensation in multiple plantar sites Musculoskeletal: Range of motion at the ankle and MTP joints is within normal limits. Strength is 5/5 in all tested muscle groups. Gait is antalgic due to offloading of the affected limb. General Appearance: Alert, Oriented X3 HEENT: Atraumatic Lungs: Clear to auscultation Cardiovascular: Regular rate, Normal S1, Normal S2 Abdomen: Normal bowel sounds Medications Current Medications Medications Dose Ordered Sig/Eric Route Start Time Stop Time Status Last Admin Dose Admin Vancomycin HCl 0 ml @ 0 mls/hr PER PHARMACY IV 07/30/25 11:00 Cancel Vancomycin HCl 250 ml @ 250 mls/hr Q1H IV 07/30/25 11:30 07/30/25 13:29 Cancel Sodium Chloride 1,000 ml @ 60 mls/hr [id number] IV 07/30/25 13:00 08/02/25 07:40 60 MLS/HR Acetaminophen 650 mg Q6HP PRN PO 07/30/25 11:30 Acetaminophen/ Hydrocodone Bitart 1 tab Q4HP PRN PO 07/30/25 11:30 Vancomycin HCl 0 ml @ 0 mls/hr PER PHARMACY IV 07/30/25 11:30 Insulin Glargine 15 units QAM SC 07/31/25 07:00 08/02/25 06:04 15 UNITS Diagnostic Test (Pha) 1 strip ACHS 07/31/25 07:00 08/03/25 06:10 1 STRIP Insulin Human Regular HS SC 07/31/25 22:00 08/02/25 22:23 4 UNITS Insulin Human Regular AC SC 07/31/25 07:00 08/02/25 17:00 3 UNITS Dextrose 50 ml UD PRN IV 07/31/25 07:00 Piperacillin Sod/ Tazobactam Sod 100 ml @ 25 mls/hr Q6H IV 07/31/25 22:00 08/03/25 05:11 25 MLS/HR Vancomycin HCl 250 ml @ 250 mls/hr Q8H IV 08/03/25 03:00 08/03/25 10:02 250 MLS/HR Laboratory Results Laboratory Tests 07/31/25 05:00 08/03/25 04:58 Urinalysis Test 07/31/25 00:00 Urine Color Light-orange (Yellow) Urine Clarity Clear (Clear) Urine pH 6.0 (5.0-9.0) Urine Specific [place] 1.023 (1.001-1.035) Urine Protein Negative (Negative) Urine Ketones 1+ (Negative) H Urine Blood Negative /uL (Negative) Urine Nitrite Negative (Negative) Urine Bilirubin Negative (Negative) Urine Urobilinogen Normal mg/dL (Negative) Urine Leukocyte Esterase Negative /uL (Negative) Urine RBC None seen /hpf (0 - 3) Urine Microscopic WBC 3 /HPF (0-3) Urine Squamous Epithelial Cells Few /hpf (<5) Urine Bacteria None seen /hpf (None Seen) Urine Glucose 4+ mg/dL (Normal) H Microbiology Microbiology Date/Time Source Procedure Growth Status 08/01/25 13:19 Foot Right Gram Stain Pending Resulted 08/01/25 13:19 Foot Right Anaerobic Culture - Preliminary Resulted 08/01/25 13:19 Aerobic Culture - Preliminary Enterococcus faecalis Resulted 07/30/25 11:08 Blood Blood Culture - Preliminary NO GROWTH AFTER 72 HOURS OF INCUBATION. Resulted Assessment/Plan Assessment/Plan ASSESSMENT: Patient is a 49 year old seen on the floor for a worsening ulcer PLAN: - The patients chart was reviewed, clinical findings were discussed with the patient, the etiologies of the conditions were discussed in detail, and a treatment plan was agreed to at this time, with both oral and written instructions provided. - reviewed advanced imaging - discussed plan is to perform an incision and drainage - patient will has been NPO since midnight - take him to the OR today - we will get cultures in the OR - can weightbear as tolerated in postoperative shoe - discharge patient home with the there IV or p.o. antibiotics - weightbearing as tolerated in a postop shoe - follow up with me in 1 week All questions were answered and concerns addressed to the patient's satisfaction. The patient was given the phone number to the clinic and was told how to make contact with the clinic should any concerns or questions arise. Patient understands that if any questions or concerns arise prior to the next appointment, we should be contacted immediately. FOLLOW-UP: Continue to follow while inpatient Plan discussed with: Patient My Orders Orders - LINDSEY ARCOS DPM Procedure Category Date Status Time Npo After Midnight [facility] [place] 08/02/25 In Process 12:46 Npo (Nothing By DIET 08/03/25 Transmitted Mouth) Diet Breakfast Obtain Consent For: ORDERS 08/02/25 Transmitted 12:47 Problem List: (1) Cellulitis of foot (2) Osteomyelitis (3) Diabetic foot ulcer (4) Uncontrolled type 2 diabetes mellitus Visit Coding Podiatry Date of Service if different f: Aug 03, 2025 Billing Provider: LINDSEY ARCOS DPM Podiatry Common Visit Codes: [id number] INP/OBS CARE(HIGH) LINDSEY ARCOS DPM Aug 03, 2025 11:51
--- NOTE | 2025-08-03 11:57 | DVHOP2 ---
Operative Report - 2 Report Details Date: 08/03/25 Preop Diagnosis: 1. Right foot osteomyelitis 2. Right foot abscess 3. Right foot cellulitis Postop Diagnosis: Same as preop Surgeon: Lindsey Arcos MD Anesthesiologist: See anesthesia Anesthesia: Mac Consent: The patient was informed of the risks and benefits of the procedure. These include but are not limited to complications of anesthesia, postoperative infection, incomplete relief of symptoms, recurrence of symptoms, damage to blood vessels, nerves and tendons, deep venous thrombosis, pulmonary embolism and possible need for repeat surgery in the future. Complications: None Estimated Blood Loss: Minimal Fluids: See anesthesia Findings: Consistent with diagnosis Indications for Surgery: Worsening foot wound Name of Procedure Performed 1. Right foot I&D to bone (72446) 2. Right foot delayed closure (33637) Procedure Details Procedure Details: PRE-PROCEDURE INFORMATION: In the pre-op holding area, the extremity to be operated on was clearly marked and the patient verified correct laterality of the marking. The patient was transferred to the OR table and placed in a supine position. A timeout was performed in which identification of the correct patient, procedure, location, and materials was done. The right foot and leg were prepped and draped in normal sterile fashion. DESCRIPTION OF PROCEDURE: Attention was directed to the right foot where area of fluctuance was noted. An incision was made over this area and was deepened through blunt dissection. The incision was deepened to the level of abscess and bone. Care was taken to the dissection to avoid any neurovascular and tendinous structures. The incision was deepened to the bone, and the abscess appeared to be purulent fluid consistent with pus. The cortices of the bone was then re moved with rongeur an all necrotic tissue. After the abscess was drained, the area was irrigated with 3 L normal saline using cysto tubing. A delayed closure was then performed using 2-0 nylon after was deemed appropriate with no longer concern for infection. POSTOPERATIVE INFORMATION: The patient tolerated the above noted procedure and anesthesia well and was transferred to the PACU with vital signs stable, and vascular status intact with capillary refill intact to all digits. Patient can be discharged home on antibiotics. Weightbearing as tolerated in a postoperative shoe. Follow up with me in 1 week. Condition Good Disposition Home Visit Coding Podiatry Date of Service if different f: Aug 03, 2025 Billing Provider: LINDSEY ARCOS DPM Podiatry Common Visit Codes: PROCEDURE ONLY LINDSEY ARCOS DPM Aug 03, 2025 11:57
[2025-08-03] MEDS: BUPIVACAINE 0.5% P/F INJ 10 ML VIAL ONE (12:15)
[2025-08-03] MEDS ORDERED: AUG875T PO (12:41)
[2025-08-03] MEDS ORDERED: METF-370 PO (12:41)
--- NOTE | 2025-08-03 14:06 | MEDREC ---
[facility] Intervention Section I [facility] Intervention: Deescalate AB based on CS (Wound culture came back MSSA, please de-escalate antibiotic based on susceptibility), Review courses of therapy, Renal dosing adjustment (Patient in LINDA (Scr yesterday = 0.91 --> 2.02 today), consider D/C Zosyn and switch to nafcillin. Consider switch vancomycin to Linezolid.) [facility] RESIDENT Aug 03, 2025 14:06
--- NOTE | 2025-08-03 18:21 | DVHDS2 ---
Discharge Summary Date of Admission Jul 30, 2025 at 11:26 Date of Discharge: Aug 03, 2025 Labs/Diagnostic Data: Laboratory Results Test 08/03/25 05:57 08/03/25 04:58 08/02/25 18:20 08/01/25 08:37 POC Glucose 179 mg/dl (70-106) White Blood Count 6.2 10^3/uL (4.4-10.8) Red Blood Count 3.84 10^6/uL (4.5-5.90) Hemoglobin 11.7 g/dL (13.5-17.5) Hematocrit 34.0 % (41.0-53.0) Mean Corpuscular Volume 88.6 fL (80.0-100.0) Mean Corpuscular Hemoglobin 30.6 pg (28.0-32.0) Mean Corpuscular Hemoglobin Concent 34.5 g/dL (32.0-36.0) Red Cell Distribution Width 12.0 % (11.8-14.3) Platelet Count 365 10^3/uL (140-450) Mean Platelet Volume 7.5 fL (6.9-10.8) Neutrophils (%) (Auto) 67.2 % (37.0-80.0) Lymphocytes (%) (Auto) 16.2 % (10.0-50.0) Monocytes (%) (Auto) 14.0 % (0.0-12.0) Eosinophils (%) (Auto) 2.0 % (0.0-7.0) Basophils (%) (Auto) 0.6 % (0.0-2.0) Neutrophils # (Auto) 4.2 10 ^3/uL (1.6-8.6) Lymphocytes # (Auto) 1.0 10 ^3/uL (0.4-5.4) Monocytes # (Auto) 0.9 10 ^3/uL (0-1.3) Eosinophils # (Auto) 0.1 10 ^3/uL (0-0.8) Basophils # (Auto) 0 10 ^3/uL (0-0.2) Nucleated Red Blood Cells 0.0 % Creatinine 2.02 mg/dL (0.700-1.30) Glomerular Filtration Rate Calc 40 mL/min (>90) Vancomycin Level Trough 20.4 ug/mL (5-10) Prothrombin Time 11.9 sec (9.3-11.8) Prothrombin Time INR 1.14 (0.9-1.15) Activated Partial Thromboplast Time 30.0 SEC (24.5-34.5) Test 07/31/25 05:00 07/31/25 00:00 07/30/25 11:08 07/30/25 09:12 Sodium Level 138 mmol/L (136-145) Potassium Level 3.6 mmol/L (3.5-5.1) Chloride Level 97 mmol/L (98-107) Carbon Dioxide Level 27 mmol/L (20-31) Anion Gap 14 (5-15) Blood Urea Nitrogen 8 mg/dL (9-23) BUN/Creatinine Ratio 8.7 (10.0-20.0) Serum Glucose 252 mg/dL (74-106) Calcium Level 9.6 mg/dL (8.7-10.4) Urine Color Light-orange (Yellow) Urine Clarity Clear (Clear) Urine pH 6.0 (5.0-9.0) Urine Specific [place] 1.023 (1.001-1.035) Urine Protein Negative (Negative) Urine Ketones 1+ (Negative) Urine Blood Negative /uL (Negative) Urine Nitrite Negative (Negative) Urine Bilirubin Negative (Negative) Urine Urobilinogen Normal mg/dL (Negative) Urine Leukocyte Esterase Negative /uL (Negative) Urine RBC None seen /hpf (0 - 3) Urine Microscopic WBC 3 /HPF (0-3) Urine Squamous Epithelial Cells Few /hpf (<5) Urine Bacteria None seen /hpf (None Seen) Urine Glucose 4+ mg/dL (Normal) Urine Opiates Screen Neg (NEGATIVE) Urine Fentanyl Screen Neg (NEGATIVE) Urine Barbiturates Screen Neg (NEGATIVE) Urine Phencyclidine Screen Neg (NEGATIVE) Urine Amphetamines Screen Neg (NEGATIVE) Urine Benzodiazepines Screen Neg (NEGATIVE) Urine Cocaine Screen Neg (NEGATIVE) Urine Cannabinoids Screen Neg (NEGATIVE) Lactic Acid Level 1.3 mmol/L (0.4-2.0) Erythrocyte Sedimentation Rate 56 mm/hr (0-20) Hemoglobin A1c 9.1 % A1C (<5.7) C-Reactive Protein High Sensitivity 15.99 mg/dL (<1.0) Triglycerides Level 126 mg/dL (< 150) Cholesterol Level 169 mg/dL (< 200) LDL Cholesterol 70 mg/dL (< 100) HDL Cholesterol 64 mg/dL (40-59) Other Laboratory Tests 08/03/25 04:58 07/31/25 05:00 Brief Hx & Hospital Course: 49-year-old male with past medical history of type 2 diabetes mellitus non compliant with his medications. Patient presented to the ED with chief complaint of right foot pain and edema. Patient reports that he has been dealing with a right foot nonhealing ulcer in the plantar aspect of the right foot for the past four months. 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 Today he presented to the ED with similar complaint. Upon my examination, there is an open wound in the plantar aspect of the right foot that is not painful to the touch and is actually not secreting any pus or material from the wound. There is mild edema in the dorsal aspect of the right foot that is very tender to palpation but no crepitus at this time. Initial labs were grossly unremarkable except for mild LINDA and elevated blood glucose at 311. CT of the right foot showed soft tissue swelling and cellulitis with a gas-forming bacteria and suspected osteomyelitis of the 5th metatarsal head and 4th proximal phalanx. Based on possible gas- forming bacteria we started the patient on IV meropenem, vancomycin and clindamycin to cover for necrotizing cellulitis/fascitis. We ordered blood cultures, wound cultures and Podiatry consult. Once cultures are back we can deescalate antibiotics accordingly. Patient will be admitted for further assessment and management of osteomyelitis of the right foot. Was taken to OR for I and D and abscess drainage with bone bx Cultures came back e coli, MSSA sensitive DC on oral augmentin He will follow with podiatry in 1 week Condition at Discharge: Good Final Diagnosis/Problems List osteomyelitis toe uncontrolled DM Discharge Disposition: Home Discharge Instruct/Medications Diet: Regular, Consistent carbohydrate Activity: No Restrictions, As Tolerated Follow Up/Referral: Podiatry Dr Barry in 7 days Medications: augmentin, metformin Scheduled Amoxicillin & Pot Clavulanate (Augmentin Tablet), 875 MG PO BID Metformin Hydrochloride (Metformin Hcl), 1 TAB PO BID Discharge Statement: "Patient was advised to return to the ER or call 911 if any headaches, dizziness, shortness of breath, chest pain, abdominal pain, bleeding, fevers, or worsening of medical condition. Patient was counseled about treatment plan, medications, possible side effects, patientverbalized understanding. All questions were answered to the best of my ability. This discharge took greater then 30 minutes in planning, reviewing documentation, counseling the patient, and discussing with other team members." ASSESSMENT ASSESSMENT Assessment osteomyelitis toe Date of Service: Aug 03, 2025 Billing Provider: CHADD KING MD Common Visit Codes: [id number] DISCH DAY >30min CHADD KING MD Aug 03, 2025 18:21
== END 2025-08-03 18:05 | disposition home or self-care (01) | DRG 629 ==
LOC: ER 08:12 → OVERFLOW 11:26 → WEST WING 23:05
PROVIDERS: ADMIT Hospitalist; ATTEND Hospitalist
PROC: 0J9Q0ZZ Drainage of Right Foot Subcutaneous Tissue and Fascia, Open Approach (ICD-10-PCS; 2025-08-01)
PROC: 0QBN0ZX Excision of Right Metatarsal, Open Approach, Diagnostic (ICD-10-PCS; principal; 2025-08-01 12:25)
PROC: 0J9Q0ZZ Drainage of Right Foot Subcutaneous Tissue and Fascia, Open Approach (ICD-10-PCS; 2025-08-03)
DX: E11.69 Type 2 diabetes mellitus with other specified complication (principal); L02.611 Cutaneous abscess of right foot; M86.171 Other acute osteomyelitis, right ankle and foot; L03.115 Cellulitis of right lower limb; N17.9 Acute kidney failure, unspecified; E11.65 Type 2 diabetes mellitus with hyperglycemia; E11.621 Type 2 diabetes mellitus with foot ulcer; J43.9 Emphysema, unspecified; L97.519 Non-pressure chronic ulcer of other part of right foot with unspecified severity; Z91.148 Patient's other noncompliance with medication regimen for other reason; Z79.899 Other long term (current) drug therapy
CPT/HCPCS: 36415; 73700; 73718; 80048; 80061; 80202; 80307; 81001; 82565; 82962; 83036; 83605; 85025; 85610; 85652; 85730; 86141; 86850; 86900; 86901; 87040; 87070; 87075; 87077; 87081; 87186; 87205; G0378; J1815; J2185; J2250; J2405; J2543; J2704; J3490